=== PATIENT | male | born 1985 | race Native Hawaiian/Other Pacific Islander ===

== ENCOUNTER 2022-05-24 18:51 | Emergency (ER) | payer BC, SELFPAY ==
[2022-05-24 19:13] VITALS: BP 139/92; PULSE 85; RESP 18; TEMP 36.4; O2SAT 98; BMI 31.3
--- NOTE | 2022-05-24 19:38 | ED_ITS ---
HPI - Eye Problem General Chief complaint: Eye Problems Stated complaint: [facility] Time Seen by Provider: 05/24/22 19:32 History of Present Illness HPI Narrative: This 36-year-old male comes in with redness and discharge from both eyes over the past couple days. He states that he has had some matting and crusty discharge in his eyes. He does not report any other symptoms of infection. He does state that he has a tooth that needs a crown in its giving him some discomfort also. He does not report any ear pain or sore throat. He does not have cough or shortness of breath. He states that he does work in a [employer] environment. Related Data Previous Rx's Medication Instructions Recorded polymyxin B sulfate 10,000 1 drp OPHTHALMIC (EYE) Q3H 7 Days 05/24/22 unit-trimethoprim 1 mg/mL eye drops #10 ml Allergies Allergy/AdvReac Type Severity Reaction Status Date / Time No Known Drug Allergies Allergy Verified 05/24/22 19:15 Review of Systems Status of ROS: Reports: 10 or more systems reviewed and unremarkable except as noted in History and below Narrative: Constitutional: No fevers, no weight gain or loss. Eyes: Redness and purulent discharge bilaterally. HENT: No congestion, no sore throat, no ear pain. Cardiovascular: No chest pain, no palpitations. Respiratory: No shortness of breath, no wheezes, no cough. Gastrointestinal: No abdominal pain, no vomiting, no diarrhea. Genitourinary: No dysuria, no hematuria. Musculoskeletal: Normal range of motion. Skin: No rashes, no pruritis. Neurological: No dizziness, weakness, sensory change, speech change. Endo/Heme/Allergies: No bruising or bleeding. No polydipsia. Pysch: no suicidality, no anxiety, no insomnia. All other systems reviewed and are negative. [facility] Medical History (Updated 05/24/22 @ 19:43 by Mario Connell RN) No significant past medical history Surgical History (Updated 05/24/22 @ 19:43 by Mario Connell RN) No significant past surgical history Exam Narrative: Exam Narrative: Constitutional: Well-developed, well-nourished, no acute distress. HEENT: Normocephalic, atraumatic. Both eyes are injected with some increased tearing. There is currently no sign of purulence. Neck: Normal range of motion. Nontender. Supple. Heart: Intact distal pulses. Lungs: No chest discomfort. No wheezes, rhonchi, or rales. Abdomen: Nontender. Back: Normal range of motion. Extremities: Normal range of motion. No injury. Skin: Intact. No rash. Warm. No erythema or pallor. Neurologic: No altered sensation. No weakness. Alert and oriented. Psychiatric: No suicidality. No anxiety or depression. No insomnia. Nursing notes and vitals signs are reviewed. Const: Vital Signs, click to edit/add: Vital Signs - 24 hr 05/24/22 19:13 Temperature 97.6 F Pulse Rate [Right Pulse Oximeter] 85 Respiratory Rate 18 Blood Pressure [Ri ght Upper Arm] 139/92 H Pulse Oximetry 98 Course Vital Signs Vital signs: Initial Vital Signs Temperature 97.6 F 05/24/22 19:13 Temperature Source Temporal Artery Scan 05/24/22 19:13 Pulse Rate 85 05/24/22 19:13 Respiratory Rate 18 05/24/22 19:13 Blood Pressure 139/92 H 05/24/22 19:13 Blood Pressure Mean 107 05/24/22 19:13 Blood Pressure Position Standing 05/24/22 19:13 Pulse Oximetry 98 05/24/22 19:13 Oxygen Delivery Method 05/24/22 19:13 Vital Signs Temperature 97.6 F 05/24/22 19:13 Pulse Rate 85 05/24/22 19:13 Respiratory Rate 18 05/24/22 19:13 Blood Pressure 139/92 H 05/24/22 19:13 Pulse Oximetry 98 05/24/22 19:13 Temperature 97.6 F 05/24/22 19:13 Pulse Rate 85 05/24/22 19:13 Respiratory Rate 18 05/24/22 19:13 Blood Pressure 139/92 H 05/24/22 19:13 Pulse Oximetry 98 05/24/22 19:13 MDM - Eye Problem MDM Narrative Medical decision making narrative: This patient has symptoms typical of a conjunctivitis. A prescription for Polytrim is provided. He was also requesting a return to work note which was also provided. Discharge Plan Discharge Clinical Impression: Bacterial conjunctivitis Patient Disposition: Home, Self-Care Condition: Stable Instructions: Conjunctivitis (ED) Additional Instructions: Take medication as prescribed. Follow up with MD or return if worsening. Prescriptions: New polymyxin B sulf-trimethoprim 10,000 unit- 1 mg/mL drops 1 drp ophthalmic (eye) Q3H 7 Days Qty: 10 0RF Rx Instructions: while awake; do not exceed 6 doses in 24 hours Stand Alone Forms: [employer] Info Instructions
[2022-05-24 19:51] VITALS: BP 125/85; PULSE 84; RESP 18; TEMP 36.4; O2SAT 98
== END 2022-05-24 19:55 | disposition home or self-care (01) ==
LOC: ED 19:51
PROVIDERS: Emergency Provider Emergency Medicine Emergency Medical Services
DX: H10.023 Other mucopurulent conjunctivitis, bilateral (principal)
CPT/HCPCS: 99282; 99283; 99284

== ENCOUNTER 2022-07-26 13:28 | Emergency (ER) | payer BC, SELFPAY ==
[2022-07-26 14:07] VITALS: BP 152/106; PULSE 92; RESP 16; TEMP 36.7; O2SAT 98; BMI 33.9
--- NOTE | 2022-07-26 14:48 | ED_ITS ---
HPI - General Adult General Chief complaint: Cough Stated complaint: Cough Runny Nose Congested 2/2 Time Seen by Provider: 07/26/22 14:23 History of Present Illness HPI narrative: 37 year male coming in today requesting a work note to return to work. He took a few days off because he had a cough and congestion. His symptoms have now resolved. He states they took some at home COVID test that were negative. He has no concerns. Related Data Home Medications Medication Instructions Recorded Confirmed No Known Home Medications 07/26/22 07/26/22 Allergies Allergy/AdvReac Type Severity Reaction Status Date / Time No Known Drug Allergies Allergy Verified 05/24/22 19:15 Review of Systems Status of ROS: Reports: 6 or more systems reviewed and unremarkable except as noted in History and below [facility] Medical History (Updated 07/26/22 @ 14:51 by Idania Gillette MD) No significant past medical history Surgical History (Updated 05/24/22 @ 19:43 by Mario Connell RN) No significant past surgical history Social History Smoking Status: Current every day smoker What tobacco products do you use: cigarettes Second hand tobacco smoke exposure: Yes How often do you have a drink containing alcohol: monthly or less How often do you have six or more drinks on one occasion: Never AUDIT-C Alcohol total score: 1 Non-prescribed substance use: marijuana (any form) Exam Narrative: Exam Narrative: Well-nourished well-developed patient in no acute distress. Alert and oriented. Answers questions appropriately. Mood and affect are appropriate. Thoughts are goal oriented and rational. No tangential or magical thinking noted. Patient speaks in full sentences without needing to catch his breath. New does not appear ill or toxic. Voice sounds normal. HEENT: Normocephalic atraumatic. Pupils are equally round reactive to light. Extraocular muscles are intact. Conjunctivae are moist without any icterus noted. Moist mucous membranes. Cardiovascular: Heart is regular rate and rhythm S1 and S2 are present without any murmurs. Lungs: Clear to auscultation bilaterally no wheezes rhonchi or rales are appreciated. Patient takes deep breaths without any discomfort. Skin: Well perfused without any obvious rashes. Const: Vital Signs, click to edit/add: Vital Signs - 24 hr 07/26/22 14:07 Temperature 98.0 F Pulse Rate [Right Pulse Oximeter] 92 Respiratory Rate 16 Blood Pressure [Ri ght Upper Arm] 152/106 H Pulse Oximetry 98 Oxygen Delivery Me thod Room Air Course Vital Signs Vital signs: Initial Vital Signs Temperature 98.0 F 07/26/22 14:07 Temperature Source Temporal Artery Scan 07/26/22 14:07 Pulse Rate 92 07/26/22 14:07 Respiratory Rate 16 07/26/22 14:07 Blood Pressure 152/106 H 07/26/22 14:07 Blood Pressure Mean 121 07/26/22 14:07 Blood Pressure Position Sitting 07/26/22 14:07 Pulse Oximetry 98 07/26/22 14:07 Oxygen Delivery Method 07/26/22 14:07 Vital Signs Temperature 98.0 F 07/26/22 14:07 Pulse Rate 92 07/26/22 14:07 Respiratory Rate 16 07/26/22 14:07 Blood Pressure 152/106 H 07/26/22 14:07 Pulse Oximetry 98 07/26/22 14:07 Oxygen Delivery Method 07/26/22 14:07 Temperature 98.0 F 07/26/22 14:07 Pulse Rate 92 07/26/22 14:07 Respiratory Rate 16 07/26/22 14:07 Blood Pressure 152/106 H 07/26/22 14:07 Pulse Oximetry 98 07/26/22 14:07 Oxygen Delivery Method 07/26/22 14:07 Medical Decision Making MDM Narrative Medical decision making narrative: Healthy 37-year-old male requesting work note. Note was provided. Discharge Plan Discharge Clinical Impression: Healthy adult male Patient Disposition: Home, Self-Care Condition: Stable Prescriptions: No Action No Known Home Medications Follow Up/Referrals: Provider,Not a Local [Primary Care Provider] - Stand Alone Forms: [facility] Info Instructions
--- OUTSIDE RECORDS SUMMARY | 2022-07-26 14:58 | XMS_ITS | Encounter Summary ---
:1985 Author Organization [facility] Address [address] [address] Care Team Providers Name Role Phone Needs Pcp, Assignment Primary Care Provider Encounter Details Date Type Department Care Team Description 03/09/2016 Notes/Orders CODING DEPT ONLY 5050 Needs Pcp, Assignment [facility] ESTELLA YANEZ [facility] [address] N [id number] Social History Tobacco Use Types Packs/Day Years Used Date Smoking Tobacco: Never Assessed Sex Assigned at Date Recorded Not on file documented as of this encounter Plan of Treatment Not on filedocumented as of this encounter Visit Diagnoses Not on filedocumented in this encounter Care Teams In Process Inspector Relationship Specialty Start Date End Date Needs Pcp, Assignment PCP - General 03/04/15 [place] [address] documented as of this encounter
--- OUTSIDE RECORDS SUMMARY | 2022-07-26 14:58 | XMS_ITS | Encounter Summary ---
:1985 Author Organization [employer] [facility] Address [address] [address] Care Team Providers Name Role Phone Needs Pcp, Assignment Primary Care Provider Reason for Visit Reason Comments Rash Encounter Details Date Type Department Care Team Description 12/14/2020 Hospital Encounter [facility] Alfonso Rash and nonspecific Arnulfo Nolan MD skin eruption Care [address] [place] [address] [place] [id number] [phone] Social History Tobacco Use Types Packs/Day Years Used Date Smoking Tobacco: Every Day Cigarettes 0.5 17 Smokeless Tobacco: Never Sex Assigned at Date Recorded Not on file documented as of this encounter Last Filed Vital Signs Vital Sign Reading Time Taken Comments Blood Pressure 164/108 12/14/2020 12:07 PM EXECUTIVE CHEF ASSISTANT Pulse 90 12/14/2020 12:07 PM EXECUTIVE CHEF ASSISTANT Temperature 36.9 ??C (98.5 ??F) 12/14/2020 12:07 PM EXECUTIVE CHEF ASSISTANT Respiratory Rate 16 12/14/2020 12:07 PM EXECUTIVE CHEF ASSISTANT Oxygen Saturation 100% 12/14/2020 12:07 PM EXECUTIVE CHEF ASSISTANT Inhaled Oxygen Concentration - - Weight - - Height - - Body Mass Index - - documented in this encounter ED Notes Cody Orozco MD - 12/14/2020 12:57 PM CST Itchy red ring on left buttock x 3 months. Appears to be getting bigger. Denies fever. Patient ID: Raymundo Viera Date of : 1985 SUBJECTIVE: 35 y.o. male presents with a rash on his left buttock that is been going on for about three months. He says it seems to be getting bigger and it is itchy on the edges. He has not been around anybody with the rash. No other complaints. Medications: Allergies: No Known Allergies Review of systems: As noted in HPI. All other systems are negative. OBJECTIVE: General: Appears well in no distress. Vitals: Blood pressure (!) 164/108, pulse 90, temperature 36.9 ??C (98.5 ??F), temperature source Oral, resp. rate 16, SpO2 100 %. HEENT: Head is normocephalic and atraumatic, EOM's intact. Oropharynx normal. External auditory canals are without drainage. NECK: Full range of motion is noted. MUSCULOSKELETAL: Normal appearance range of motion appeared normal. Patient ambulated without difficulties. NEURO: Cranial nerves 2-12 appear grossly intact, there are no focal deficits present. SKIN: He has a circular rash on his left buttock about 8 cm in diameter on the top of the rash the edges slightly raised. UC Course: This does have some characteristics of a tinea type rash, started on ketoconazole cream to apply b.i.d. and to keep applying it until two weeks after the rash is gone. He does have a number to follow up with primary care physician and they can recheck his blood pressure then to see if it is continues to be elevated. ASSESSMENT: The encounter diagnosis was Rash and nonspecific skin eruption. PLAN: Ketoconazole as directed. Follow up with primary care physician in 3 - 5 days or sooner if symptoms worsen. May return here orgo to the ER if worsening or concerns. Call here if any concerns whatsoever. UTIVE CHEF ASSISTANT documented in this encounter Plan of Treatment Not on filedocumented as of this encounter Visit Diagnoses Diagnosis Rash and nonspecific skin eruption Rash and other nonspecific skin eruption Triage Assessment Note - Siobhan Etienne RN - 12/14/2020 12:06 PM EXECUTIVE CHEF ASSISTANT Itchy red ring on left buttock x 3 months. Appears to be getting bigger. Denies fever. UTIVE CHEF ASSISTANT documented in this encounter Care Teams Freight Brakeman Relationship Specialty Start Date End Date Needs Pcp, Assignment PCP - General 03/04/15 [place] [address] documented as of this encounter
--- OUTSIDE RECORDS SUMMARY | 2022-07-26 14:58 | XMS_ITS | Encounter Summary ---
:1985 Author Organization [facility] Address [address], [place] [address] Care Team Providers Name Role Phone Needs Pcp, Assignment Primary Care Provider Reason for Visit Reason Comments Abdominal Pain Diarrhea Encounter Details Date Type Department Care Team Description 03/04/2015 Hospital Encounter [facility] Joann Reyes, Jennifer rehman; Care MATTHEW Acute abdominal pain [address] [address] [phone] Social History Tobacco Use Types Packs/Day Years Used Date Smoking Tobacco: Never Assessed Sex Assigned at Date Recorded Not on file documented as of this encounter Last Filed Vital Signs Vital Sign Reading Time Taken Comments Blood Pressure 129/87 03/04/2015 2:05 PM CDT Pulse 54 03/04/2015 2:05 PM CDT Temperature 35.9 ??C (96.6 ??F) 03/04/2015 2:05 PM CDT Respiratory Rate 20 03/04/2015 2:05 PM CDT Oxygen Saturation - - Inhaled Oxygen Concentration - - Weight - - Height - - Body Mass Index - - documented in this encounter ED Notes Joann Reyes PA-C - 03/04/2015 2:25 PM CDT Acute Clinic Visit SUBJECTIVE: History of Present Illness: Raymundo Viera is a 29 y.o. male who presents with girlfriend concern for vomiting and diarrhea. This started 1 week ago. He did have vomiting for the first 3-4 days, but that has since resolved. He continues to have nausea. He reports continued diarrhea. States he has had watery stool approximately 10-15x/ day. States he has had upper abdominal discomfort which will be intermittent. Pain is rated 3-4/10. Denies urinary symptoms. No recent sick contacts. No recent antibiotics.States he ate at [employer] and the next day started to feel off. States the food did not taste right. No recent travel outside of the [place] No blood in the vomitus or diarrhea. He did feel lightheaded yesterday, but not today.No treatments have been tried. He does consume alcohol occasionally. States he has had a few beers a few days ago but nothing since. States he believes he is not improving as fast as he works 2 jobs and has not had time to rest. He is wondering if he could have a fewdays off to rest. Past History: History reviewed. No pertinent past medical history. Adverse Drug Reactions: No Known Allergies Chronic Medications: Reviewed and updated today on the Patient Health Profile in EMR Review of Systems: No History of chronic GI disease. No rash. Denies sore throat. Complete review systems is negative. Social history: History Social History ??? Marital Status: Single Spouse Name: N/A Number of Children: N/A ??? Years of Education: N/A Social History Main Topics ??? Smoking status: None ??? Smokeless tobacco: None ??? Alcohol Use: None ??? Drug Use: None ??? Sexual Activity: None Other Topics Concern ??? None Social History Narrative ??? None OBJECTIVE: Filed Vitals: 03/04/15 1405 BP: 129/87 Pulse: 54 Temp: 35.9 ??C (96.7 ??F) TempSrc: Oral Resp: 20 General Appearance: Mildly ill-appearing. Nontoxic appearing breathing easily. Eyes: Full EOM, PERRLA, without lesions or injection. Oropharynx: Normal, mucous membranes minimally dry. tonsils symmetric without redness or exudate. Nooral or posterior pharyngeal lesions. Respiratory: Lung sounds clear to auscultation without respiratory distress. Heart: RR without murmurs, rubs, or gallops. Abdomen: Bowel sounds hyperactive without pathological sounds. No abdominal tenderness, guarding or rebound. He points the epigastric/upper, region where he said discomfort however I'm not able to reproduce this on exam today and he states he does not recurrent abdominal pain. No masses or hernias noted. No hepatosplenomegaly. No CVA TTP. Lab & X-Ray: We discussed about starting IV, checking RST, CBC, amylase, lipase, liver function,urine, and stool cultures to rule out causes for his persistent diarrhea and abdominal pain. He states he does not have current insurance and is concerned about the cost. He does not want to do any testing today but is requesting to have a few days off so he can rest and see if his symptoms will improve. he states that his symptoms have not improved in the next 2 days after rest, he would return and to have labs at that time but declined having any further testing today. ASSESSMENT : 1. Acute viral gastroenteritis with persistent diarrhea PLAN: Recommendations for home treatment: recommend further evaluation and testing today however he states he is concerned about the cost as he does not have insurance. He therefore declined any further testing/evaluation today. He wishes to just rest at home. We discussed that this could be a viral gastroenteritis however I'm concerned about the persistent diarrhea. I did order stool cultures, Giardia, O&P, and C. difficile testing. Ifdiarrhea is not improving in the next day to 2, he will submit these cultures. I discussed that if his symptoms are not improving in the next 2 days, would recommend reevaluation at that time and for further testing. He states he would do that if it is not improving at that point or if it is worseningbefore then but declines any further testing/treatments here in clinic today. Encourage nutritious fluids. Discussed but the importance of avoiding dehydration. Work note was given excusing him from work through 03/06/15. Contagiousness discussed. RTC PRN for persistent vomiting, diarrhea which is not improving or otherwise worsening condition.Patient is agreeable to this plan. he is in stable condition. Please note that the above medical documentation was created with voice recognition software and may contain typographic errors. documented in this encounter Miscellaneous Notes Letter - Joann Reyes PA-C - 03/04/2015 12:00 AM CDT [facility] [address] [place] [address] March 04, 2015 Patient: Raymundo Viera Date of : 1985 Date of Visit: 03/04/2015 To Whom It May Concern: Raymundo Viera was seen and treated in our department on 03/04/2015. Please excuse him from work from 03/04/15-03/06/15 due to current illness. If you have any questions or concerns, please don't hesitate to call. Sincerely, Joann Reyes PA-C DATA ANALYST documented in this encounter Plan of Treatment Not on filedocumented as of this encounter Visit Diagnoses Diagnosis Diarrhea Acute abdominal pain Abdominal pain, unspecified site Triage Assessment Note - Beatriz Galvan LPN - 03/04/2015 2:04 PM CDT Pt. here for abdominal pain and diarrhea x 1 week. Did have vomiting also, but now mainly diarrhea and nausea. documented in this encounter Care Teams Forest Fire Officer Relationship Specialty Start Date End Date Needs Pcp, Assignment PCP - General 03/04/15 [place] [address] documented as of this encounter
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
--- OUTSIDE RECORDS SUMMARY | 2022-07-26 14:58 | XMS_ITS | Encounter Summary ---
:1985 Author Organization [facility] Address [address], [place] [address] Care Team Providers Name Role Phone Needs Pcp, Assignment Primary Care Provider Reason for Referral Procedure/Equipment (Routine) - Incomplete Specialty Diagnoses / Procedures Referred By Contact Refer red To Contact Diagnoses Left lower quadrant pain Bryan Cuellar MD Procedures CT Abd Pelvis W IV Cont [address] [place], [place] [address] Referral ID Status Reason Start Date Expiration Date Visits V isits Requested Authorized [id number] Incomplete 10/08/2018 01/07/2020 1 1 [employer] Reason for Visit Reason Comments Abdominal Pain Encounter Details Date Type Department Care Team Description 10/08/2018 Hospital Encounter [facility] Bryan Cuellar ft lower quadrant pain; Susan Jang MD Diverticulitis [address] [place] [address] [place], [place] [id number] [address] [phone] Social History Tobacco Use Types Packs/Day Years Used Date Smoking Tobacco: Every Day Cigarettes 0.5 17 Smokeless Tobacco: Never Tobacco Cessation: Counseling Given: Yes Sex Assigned at Date Recorded Not on file documented as of this encounter Last Filed Vital Signs Vital Sign Reading Time Taken Comments Blood Pressure 137/87 10/08/2018 4:29 PM [employer]AL [employer] Pulse 70 10/08/2018 4:29 PM [employer]ENTAL [employer] TE[employer] Temperature 36.8 ??C (98.3 ??F) 10/08/2018 4:29 PM [employer]ENTAL [employer]ER Respiratory Rate 18 10/08/2018 4:29 PM [employer]ENTAL [employer]UREMENTS TE[employer]ER Oxygen Saturation 98% 10/08/2018 4:29 PM [employer]ENTAL [employer]URE[employer] TE[employer]ER Inhaled Oxygen Concentration - - Weight - - Height - - Body Mass Index - - documented in this encounter Discharge Instructions Discharge InstructionsBryan Cuellar MD - 10/08/2018 6:42 PM CST Images from the original note were not included. Abdominal Pain: Care Instructions Your Care Instructions Abdominal pain has many possible causes. Some aren't serious and get better on their own in a few days. Others need more testing and treatment. If your pain continues or gets worse, you need to be rechecked and may need more tests to find out what is wrong. You may need surgery to correct the problem. Don't ignore new symptoms, such as fever, nausea and vomiting, urination problems, pain that gets worse, and dizziness. These may be signs of a more serious problem. Your doctor may have recommended a follow-up visit in the next 8 to 12 hours. If you are not gettingbetter, you may need more tests or treatment. The doctor has checked you carefully, but problems can develop later. If you notice any problems or new symptoms, get medical treatment right away. Follow-up care is a bernardo part of your treatment and safety. Be sure to make and go to all appointments, and call your doctor if you are having problems. It's also a good idea to know your test results and keep a list of the medicines you take. How can you care for yourself at home? ?? Rest until you feel better. ?? To prevent dehydration, drink plenty of fluids, enough so that your urine is light yellow or clear like water. Choose water and other caffeine-free clear liquids until you feel better. If you have kidney, heart, or liver disease and have to limit fluids, talk with your doctor before you increase the amount of fluids you drink. ?? If your stomach is upset, eat mild foods, such as rice, dry toast or crackers, bananas, and applesauce. Try eating several small meals instead of two or three large ones. ?? Wait until 48 hours after all symptoms have gone away before you have spicy foods, alcohol, and drinks that contain caffeine. ?? Do not eat foods that are high in fat. ?? Avoid anti-inflammatory medicines such as aspirin, ibuprofen (Advil, Motrin), and naproxen (Aleve). These can cause stomach upset. Talk to your doctor if you take daily aspirin for another health problem. When should you call for help? Call 911 anytime you think you may need emergency care. For example, call if: ? You passed out (lost consciousness). ? You pass maroon or very bloody stools. ? You vomit blood or what looks like coffee grounds. ? You have new, severe belly pain. ??Call your doctor now or seek immediate medical care if: ? Your pain gets worse, especially if it becomes focused in one area of your belly. ? You have a new or higher fever. ? Your stools are black and look like tar, or they have streaks of blood. ? You have unexpected vaginal bleeding. ? You have symptoms of a urinary tract infection. These may include: ? Pain when you urinate. ? Urinating more often than usual. ? Blood in your urine. ? You are dizzy or lightheaded, or you feel like you may faint. ??Watch closely for changes in your health, and be sure to contact your doctor if: ? You are not getting better after 1 day (24 hours). Where can you learn more? 1. Go to [employer] or [employer]. 2. Enter E907 in the search box. Current as of: September 24, 2017 Content Version: 11.8 ?? 7734-4180 [employer]. Diverticulitis: Care Instructions Your Care Instructions Diverticulitis occurs when pouches form in the wall of the colon and become inflamed or infected. Itcan be very painful. Doctors aren't sure what causes diverticulitis. There is no proof that foods such as nuts, seeds, orberries cause it or make it worse. A low-fiber diet may cause the colon to work harder to push stoolforward. Pouches may form because of this extra work. It may be hard to think about healthy eating while you're in pain. But as you recover, you might think about how you can use healthy eating for overall better health. Healthy eating may help you avoid future attacks. Follow-up care is a bernardo part of your treatment and safety. Be sure to make and go to all appointments, and call your doctor if you are having problems. It's also a good idea to know your test results and keep a list of the medicines you take. How can you care for yourself at home? ?? Drink plenty of fluids, enough so that your urine is light yellow or clear like water. If you have kidney, heart, or liver disease and have to limit fluids, talk with your doctor before you increasethe amount of fluids you drink. ?? Stick to liquids or a bland diet (plain rice, bananas, dry toast or crackers, applesauce) until you are feeling better. Then you can return to regular foods and gradually increase the amount of fiber in your diet. ?? Use a heating pad set on low on your belly to relieve mild cramps and pain. ?? Get extra rest until you are feeling better. ?? Be safe with medicines. Read and follow all instructions on the label. ? If the doctor gave you a prescription medicine for pain, take it as prescribed. ? If you are not taking a prescription pain medicine, ask your doctor if you can take an iqjn-dgr-tdyexdx medicine. ?? If your doctor prescribed antibiotics, take them as directed. Do not stop taking them just because you feel better. You need to take the full course of antibiotics. To prevent future attacks of diverticulitis ?? Avoid constipation: ? Include fruits, vegetables, beans, and whole grains in your diet each day. These foods are high infiber. ? Drink plenty of fluids, enough so that your urine is light yellow or clear like water. If you havekidney, heart, or liver disease and have to limit fluids, talk with your doctor before you increase the amount of fluids you drink. ? Get some exercise every day. Build up slowly to 30 to 60 minutes a day on 5 or more days of the week. ? Take a fiber supplement, such as Citrucel or Metamucil, every day if needed. Read and follow all instructions on the label. ? Schedule time each day for a bowel movement. Having a daily routine may help. Take your time and do not strain when having a bowel movement. When should you call for help? Call your doctor now or seek immediate medical care if: ? You have a fever. ? You are vomiting. ? You have new or worse belly pain. ? You cannot pass stools or gas. ??Watch closely for changes in your health, and be sure to contact your doctor if you have any problems. Where can you learn more? 1. Go to [employer] or [employer]. 2. Enter H901 in the search box. Current as of: January 30, 2018 Content Version: 11.8 ?? 0324-0131 [employer]. Diverticulitis: Care Instructions Your Care Instructions Diverticulitis occurs when pouches form in the wall of the colon and become inflamed or infected. Itcan be very painful. Doctors aren't sure what causes diverticulitis. There is no proof that foods such as nuts, seeds, orberries cause it or make it worse. A low-fiber diet may cause the colon to work harder to push stoolforward. Pouches may form because of this extra work. It may be hard to think about healthy eating while you're in pain. But as you recover, you might think about how you can use healthy eating for overall better health. Healthy eating may help you avoid future attacks. Follow-up care is a bernardo part of your treatment and safety. Be sure to make and go to all appointments, and call your doctor if you are having problems. It's also a good idea to know your test results and keep a list of the medicines you take. How can you care for yourself at home? ?? Drink plenty of fluids, enough so that your urine is light yellow or clear like water. If you have kidney, heart, or liver disease and have to limit fluids, talk with your doctor before you increasethe amount of fluids you drink. ?? Stick to liquids or a bland diet (plain rice, bananas, dry toast or crackers, applesauce) until you are feeling better. Then you can return to regular foods and gradually increase the amount of fiber in your diet. ?? Use a heating pad set on low on your belly to relieve mild cramps and pain. ?? Get extra rest until you are feeling better. ?? Be safe with medicines. Read and follow all instructions on the label. ? If the doctor gave you a prescription medicine for pain, take it as prescribed. ? If you are not taking a prescription pain medicine, ask your doctor if you can take an sack-kds-smrqyxg medicine. ?? If your doctor prescribed antibiotics, take them as directed. Do not stop taking them just because you feel better. You need to take the full course of antibiotics. To prevent future attacks of diverticulitis ?? Avoid constipation: ? Include fruits, vegetables, beans, and whole grains in your diet each day. These foods are high infiber. ? Drink plenty of fluids, enough so that your urine is light yellow or clear like water. If you havekidney, heart, or liver disease and have to limit fluids, talk with your doctor before you increase the amount of fluids you drink. ? Get some exercise every day. Build up slowly to 30 to 60 minutes a day on 5 or more days of the week. ? Take a fiber supplement, such as Citrucel or Metamucil, every day if needed. Read and follow all instructions on the label. ? Schedule time each day for a bowel movement. Having a daily routine may help. Take your time and do not strain when having a bowel movement. When should you call for help? Call your doctor now or seek immediate medical care if: ? You have a fever. ? You are vomiting. ? You have new or worse belly pain. ? You cannot pass stools or gas. ??Watch closely for changes in your health, and be sure to contact your doctor if you have any problems. Where can you learn more? 1. Go to [employer] or [employer]. 2. Enter H901 in the search box. Current as of: January 30, 2018 Content Version: 11.8 ?? 7027-3032 [employer]. Abdominal Pain: Care Instructions Your Care Instructions Abdominal pain has many possible causes. Some aren't serious and get better on their own in a few days. Others need more testing and treatment. If your pain continues or gets worse, you need to be rechecked and may need more tests to find out what is wrong. You may need surgery to correct the problem. Don't ignore new symptoms, such as fever, nausea and vomiting, urination problems, pain that gets worse, and dizziness. These may be signs of a more serious problem. Your doctor may have recommended a follow-up visit in the next 8 to 12 hours. If you are not gettingbetter, you may need more tests or treatment. The doctor has checked you carefully, but problems can develop later. If you notice any problems or new symptoms, get medical treatment right away. Follow-up care is a bernardo part of your treatment and safety. Be sure to make and go to all appointments, and call your doctor if you are having problems. It's also a good idea to know your test results and keep a list of the medicines you take. How can you care for yourself at home? ?? Rest until you feel better. ?? To prevent dehydration, drink plenty of fluids, enough so that your urine is light yellow or clear like water. Choose water and other caffeine-free clear liquids until you feel better. If you have kidney, heart, or liver disease and have to limit fluids, talk with your doctor before you increase the amount of fluids you drink. ?? If your stomach is upset, eat mild foods, such as rice, dry toast or crackers, bananas, and applesauce. Try eating several small meals instead of two or three large ones. ?? Wait until 48 hours after all symptoms have gone away before you have spicy foods, alcohol, and drinks that contain caffeine. ?? Do not eat foods that are high in fat. ?? Avoid anti-inflammatory medicines such as aspirin, ibuprofen (Advil, Motrin), and naproxen (Aleve). These can cause stomach upset. Talk to your doctor if you take daily aspirin for another health problem. When should you call for help? Call 911 anytime you think you may need emergency care. For example, call if: ? You passed out (lost consciousness). ? You pass maroon or very bloody stools. ? You vomit blood or what looks like coffee grounds. ? You have new, severe belly pain. ??Call your doctor now or seek immediate medical care if: ? Your pain gets worse, especially if it becomes focused in one area of your belly. ? You have a new or higher fever. ? Your stools are black and look like tar, or they have streaks of blood. ? You have unexpected vaginal bleeding. ? You have symptoms of a urinary tract infection. These may include: ? Pain when you urinate. ? Urinating more often than usual. ? Blood in your urine. ? You are dizzy or lightheaded, or you feel like you may faint. ??Watch closely for changes in your health, and be sure to contact your doctor if: ? You are not getting better after 1 day (24 hours). Where can you learn more? 1. Go to [employer] or [employer]. 2. Enter E907 in the search box. Current as of: September 24, 2017 Content Version: 11.8 ?? 0610-0888 [employer]. Abdominal Pain: Care Instructions Your Care Instructions Abdominal pain has many possible causes. Some aren't serious and get better on their own in a few days. Others need more testing and treatment. If your pain continues or gets worse, you need to be rechecked and may need more tests to find out what is wrong. You may need surgery to correct the problem. Don't ignore new symptoms, such as fever, nausea and vomiting, urination problems, pain that gets worse, and dizziness. These may be signs of a more serious problem. Your doctor may have recommended a follow-up visit in the next 8 to 12 hours. If you are not gettingbetter, you may need more tests or treatment. The doctor has checked you carefully, but problems can develop later. If you notice any problems or new symptoms, get medical treatment right away. Follow-up care is a bernardo part of your treatment and safety. Be sure to make and go to all appointments, and call your doctor if you are having problems. It's also a good idea to know your test results and keep a list of the medicines you take. How can you care for yourself at home? ?? Rest until you feel better. ?? To prevent dehydration, drink plenty of fluids, enough so that your urine is light yellow or clear like water. Choose water and other caffeine-free clear liquids until you feel better. If you have kidney, heart, or liver disease and have to limit fluids, talk with your doctor before you increase the amount of fluids you drink. ?? If your stomach is upset, eat mild foods, such as rice, dry toast or crackers, bananas, and applesauce. Try eating several small meals instead of two or three large ones. ?? Wait until 48 hours after all symptoms have gone away before you have spicy foods, alcohol, and drinks that contain caffeine. ?? Do not eat foods that are high in fat. ?? Avoid anti-inflammatory medicines such as aspirin, ibuprofen (Advil, Motrin), and naproxen (Aleve). These can cause stomach upset. Talk to your doctor if you take daily aspirin for another health problem. When should you call for help? Call 911 anytime you think you may need emergency care. For example, call if: ? You passed out (lost consciousness). ? You pass maroon or very bloody stools. ? You vomit blood or what looks like coffee grounds. ? You have new, severe belly pain. ??Call your doctor now or seek immediate medical care if: ? Your pain gets worse, especially if it becomes focused in one area of your belly. ? You have a new or higher fever. ? Your stools are black and look like tar, or they have streaks of blood. ? You have unexpected vaginal bleeding. ? You have symptoms of a urinary tract infection. These may include: ? Pain when you urinate. ? Urinating more often than usual. ? Blood in your urine. ? You are dizzy or lightheaded, or you feel like you may faint. ??Watch closely for changes in your health, and be sure to contact your doctor if: ? You are not getting better after 1 day (24 hours). Where can you learn more? 1. Go to [employer] or [employer]. 2. Enter E907 in the search box. Current as of: September 24, 2017 Content Version: 11.8 ?? 4437-0842 [employer]. Diverticulitis: Care Instructions Your Care Instructions Diverticulitis occurs when pouches form in the wall of the colon and become inflamed or infected. Itcan be very painful. Doctors aren't sure what causes diverticulitis. There is no proof that foods such as nuts, seeds, orberries cause it or make it worse. A low-fiber diet may cause the colon to work harder to push stoolforward. Pouches may form because of this extra work. It may be hard to think about healthy eating while you're in pain. But as you recover, you might think about how you can use healthy eating for overall better health. Healthy eating may help you avoid future attacks. Follow-up care is a bernardo part of your treatment and safety. Be sure to make and go to all appointments, and call your doctor if you are having problems. It's also a good idea to know your test results and keep a list of the medicines you take. How can you care for yourself at home? ?? Drink plenty of fluids, enough so that your urine is light yellow or clear like water. If you have kidney, heart, or liver disease and have to limit fluids, talk with your doctor before you increasethe amount of fluids you drink. ?? Stick to liquids or a bland diet (plain rice, bananas, dry toast or crackers, applesauce) until you are feeling better. Then you can return to regular foods and gradually increase the amount of fiber in your diet. ?? Use a heating pad set on low on your belly to relieve mild cramps and pain. ?? Get extra rest until you are feeling better. ?? Be safe with medicines. Read and follow all instructions on the label. ? If the doctor gave you a prescription medicine for pain, take it as prescribed. ? If you are not taking a prescription pain medicine, ask your doctor if you can take an orar-bsx-lvefsko medicine. ?? If your doctor prescribed antibiotics, take them as directed. Do not stop taking them just because you feel better. You need to take the full course of antibiotics. To prevent future attacks of diverticulitis ?? Avoid constipation: ? Include fruits, vegetables, beans, and whole grains in your diet each day. These foods are high infiber. ? Drink plenty of fluids, enough so that your urine is light yellow or clear like water. If you havekidney, heart, or liver disease and have to limit fluids, talk with your doctor before you increase the amount of fluids you drink. ? Get some exercise every day. Build up slowly to 30 to 60 minutes a day on 5 or more days of the week. ? Take a fiber supplement, such as Citrucel or Metamucil, every day if needed. Read and follow all instructions on the label. ? Schedule time each day for a bowel movement. Having a daily routine may help. Take your time and do not strain when having a bowel movement. When should you call for help? Call your doctor now or seek immediate medical care if: ? You have a fever. ? You are vomiting. ? You have new or worse belly pain. ? You cannot pass stools or gas. ??Watch closely for changes in your health, and be sure to contact your doctor if you have any problems. Where can you learn more? 1. Go to [employer] or [employer]. 2. Enter H901 in the search box. Current as of: January 30, 2018 Content Version: 11.8 ?? 7242-3239 [employer]. Diverticulitis: Care Instructions Your Care Instructions Diverticulitis occurs when pouches form in the wall of the colon and become inflamed or infected. Itcan be very painful. Doctors aren't sure what causes diverticulitis. There is no proof that foods such as nuts, seeds, orberries cause it or make it worse. A low-fiber diet may cause the colon to work harder to push stoolforward. Pouches may form because of this extra work. It may be hard to think about healthy eating while you're in pain. But as you recover, you might think about how you can use healthy eating for overall better health. Healthy eating may help you avoid future attacks. Follow-up care is a bernardo part of your treatment and safety. Be sure to make and go to all appointments, and call your doctor if you are having problems. It's also a good idea to know your test results and keep a list of the medicines you take. How can you care for yourself at home? ?? Drink plenty of fluids, enough so that your urine is light yellow or clear like water. If you have kidney, heart, or liver disease and have to limit fluids, talk with your doctor before you increasethe amount of fluids you drink. ?? Stick to liquids or a bland diet (plain rice, bananas, dry toast or crackers, applesauce) until you are feeling better. Then you can return to regular foods and gradually increase the amount of fiber in your diet. ?? Use a heating pad set on low on your belly to relieve mild cramps and pain. ?? Get extra rest until you are feeling better. ?? Be safe with medicines. Read and follow all instructions on the label. ? If the doctor gave you a prescription medicine for pain, take it as prescribed. ? If you are not taking a prescription pain medicine, ask your doctor if you can take an pvzc-ylx-gdlarsi medicine. ?? If your doctor prescribed antibiotics, take them as directed. Do not stop taking them just because you feel better. You need to take the full course of antibiotics. To prevent future attacks of diverticulitis ?? Avoid constipation: ? Include fruits, vegetables, beans, and whole grains in your diet each day. These foods are high infiber. ? Drink plenty of fluids, enough so that your urine is light yellow or clear like water. If you havekidney, heart, or liver disease and have to limit fluids, talk with your doctor before you increase the amount of fluids you drink. ? Get some exercise every day. Build up slowly to 30 to 60 minutes a day on 5 or more days of the week. ? Take a fiber supplement, such as Citrucel or Metamucil, every day if needed. Read and follow all instructions on the label. ? Schedule time each day for a bowel movement. Having a daily routine may help. Take your time and do not strain when having a bowel movement. When should you call for help? Call your doctor now or seek immediate medical care if: ? You have a fever. ? You are vomiting. ? You have new or worse belly pain. ? You cannot pass stools or gas. ??Watch closely for changes in your health, and be sure to contact your doctor if you have any problems. Where can you learn more? 1. Go to [employer] or [employer]. 2. Enter H901 in the search box. Current as of: January 30, 2018 Content Version: 11.8 ?? 2434-3440 [employer]. 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 metroNIDAZOLE (FLAGYL) 500 Take 1 Tablet by 20 Tablet 0 02/201810/18/2018 MG tablet mouth two times a day for 10 days. documented as of this encounter ED Notes Bryan Cuellar MD - 10/08/2018 12:00 PM CST NAME: NEERAJ MOLINA MR#: [id number] CSN: [id number] AUTHENTICATING CLINICIAN: Bryan Cuellar MD CONFIRM #: [id number] LOC: 520 URGENT CARE PROGRESS NOTE DATE OF VISIT: 10/08/2018 : 1985 CHIEF COMPLAINT: Abdominal pain. HISTORY OF PRESENTING ILLNESS: A 33-year-old male was evaluated in urgent care yesterday for a similar abdominal pain. At that time, he was seen to have minimally elevated white count. He refused imaging and further workup. He was instructed to return to Urgent Care today for re-evaluation. He returns with persistent intermittent ab dominal pain localized in the left lower quadrant. He has no associated urinary symptoms such as hematuria, hesitancy, urgency, and has no blood in the stool. No mucus in the stool. He is not constipated and has no diarrhea. He also notes increasing intra-abdominal pressure with straining at stool or with urination exacerbates the pain in the left lower abdominal quadrant. He has no associated nauseaor vomiting. The patient has not had similar problems like this before. PAST MEDICAL HISTORY, REVIEW OF SYSTEMS, IMMUNIZATIONS, SOCIAL AND FAMILY HISTORY: Reviewed in [employer]. CURRENT MEDICATIONS: Reviewed in [employer]. DOCUMENTED DRUG ALLERGIES: Reviewed in [facility]. EXAM: GENERAL: Alert, interactive, pleasant 33-year-old male. VITAL SIGNS: Blood pressure 137/87, respirations 18 and unlabored, heart rate 70 and regular, temperature 36.8 Celsius, oxygen saturation on room air 98%. ABDOMEN: Full. Bowel sounds active. Negative Rovsing's sign. Negative Lancaster's. Negative McBurney's.Negative Hanna's sign. No costovertebral angle tenderness or suprapubic tenderness, but marked tenderness to the left lower quadrant with negative rebound. RECTAL: Exam deferred. CHEST: Symmetric. Lung johnson are clear to auscultation and resonant to percussion. CARDIOVASCULAR: No heaves or thrills. Regular rate and rhythm. Peripheral pulses equal. Cap refill intact. DERMATOLOGIC: Normal texture and turgor. Mucous membranes moist. No icterus. No lesions. SPECIAL TESTS IN URGENT CARE: CBC, basic metabolic panel, lipase. See appended in Epic. Footnote: Peripheral WBC increased from 11.6 yesterday to 11.8 today with absolute neutrophil count decreasing from 9.1 to 8.9. Lipase is 12. Imaging study with oral and IV contrast. Formal report attached in Epic. Consistent with uncomplicated diverticulitis without bowel obstruction. CLINICAL IMPRESSION: Sigmoid colon diverticulitis without abscess formation. DISPOSITION: 1.The patient is discharged from urgent care with laboratory results and imaging study results. 2.He is instructed to commence Cipro and Flagyl as directed x10 days. 3.Follow up with Urgent Care if symptoms should persist or at any time worsen. 4.Needs followup with Primary Care at the conclusion of his antibiotics for reassessment and possible consideration for a colonoscopy. 5.The patient understands these directives. All questions answered to his satisfaction. 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 COMPLETE BLOOD STAT 10/08/2018 5:02 PM Left lower quadrant Results for this COUNT-W/DIFF MENTAL MEASUREMENTS TEACHER pain procedure are i n the results section. BASIC METABOLIC PANEL STAT 10/08/2018 5:02 PM Left lower qu adrant Results for this MENTAL MEASUREMENTS TEACHER pain procedure are i n the results section. DIFFERENTIAL STAT 10/08/2018 5:02 PM Results f or this MENTAL MEASUREMENTS TEACHER procedure are i n the results section. LIPASE STAT 10/08/2018 5:02 PM Left lower quadrant Re sults for this MENTAL MEASUREMENTS TEACHER pain procedure are i n the results section. C-REACTIVE PROTEIN STAT 10/08/2018 5:02 PM Left lower quadr ant Results for this MENTAL MEASUREMENTS TEACHER pain procedure are i n the results section. documented in this encounter Results CT Abd Pelvis W IV Cont (10/08/2018 6:12 PM MENTAL MEASUREMENTS TEACHER) Anatomical Region Laterality Modality Abdomen, Pelvis Computed Tomography Specimen (Source) Anatomical Collection Method Collection Time Re ceived Time Location / / Volume Laterality 10/08/2018 5:56 PM MENTAL MEASUREMENTS TEACHER Impressions 10/08/2018 6:29 PM MENTAL MEASUREMENTS TEACHER IMPRESSION: ?? 1. Findings consistent with diverticulit is of the sigmoid colon. No abscess formation or free air. 2. Fatty infiltration of the liver. Narrative 10/08/2018 6:29 PM MENTAL MEASUREMENTS TEACHER COMPARISON: ??None. TECHNIQUE: ??Images were obtained throug h the abdomen and pelvis following the administration of oral and 100 mL IOPAMIDOL 61 % IV SOLN contrast. FINDINGS: The lung bases are clear. Ther e is no pericardial or pleural effusion. There is diffuse decreased density of th e liver, consistent with hepatic steatosis. The spleen, pancreas, gallbladder, adrenal glands and kidneys are normal in appearance. There is focal inflammatory change of a small segment of the sigmoid colon centered at a diverticulum. There is no free air or abscess formation. The appendix is visualized and is normal. No dilated loo ps of small bowel are seen. No enlarged abdominal or pelvic lymph nodes are seen. No worrisome bony lesions are identified . Procedure Note Larisa Mendoza MD - 10/08/2018Formattin g of this note might be different from the original. COMPARISON: None. TECHNIQUE: Images were obtained through the abdomen and pelvis following the administration of oral and 100 mL IOPAMIDOL 61 % IV SOLN contrast. FINDINGS: The lung bases are clear. Ther e is no pericardial or pleural effusion. There is diffuse decreased density of th e liver, consistent with hepatic steatosis. The spleen, pancreas, gallbladder, adrenal glands and kidneys are normal in appearance. There is focal inflammatory change of a small segment of the sigmoid colon centered at a diverticulum. There is no free air or abscess formation. The appendix is visualized and is normal. No dilated loops of small bowel are seen. No enlarged abdominal or pelvic ly mph nodes are seen. No worrisome bony lesions are identified . IMPRESSION IMPRESSION: 1. Findings consistent with diverticulit is of the sigmoid colon. No abscess formation or free air. 2. Fatty infiltration of the liver. Bryan Cuellar MD RAD CT (ABNORMAL) Differential (10/08/2018 5:02 PM MENTAL MEASUREMENTS TEACHER) Patholo gist Method Time Signature Absolute 8.9 (H) 1.8 - 8.0 PN SOFT Neutrophils k/cmm Absolute 2.0 1.1 - 4.0 PN SOFT Lymphocytes k/cmm Absolute 0.7 0.2 - 0.8 PN SOFT Monocytes k/cmm Absolute 0.1 0.0 - 0.5 PN SOFT Eosinophils k/cmm Absolute 0.0 0.0 - 0.2 PN SOFT Basophils k/cmm Immature 0.3 0.0 - 0.5 PN SOFT Granulocytes % Specimen Anatomical Collection Method Collection Time Receive d Time (Source) Location / / Volume Laterality 10/08/2018 5:02 PM 8 5:02 MENTAL MEASUREMENTS TEACHER PM MENTAL MEASUREMENTS TEACHER Narrative PN SOFT - 10/08/2018 5:04 PM MENTAL MEASUREMENTS TEACHER Performed at [facility], [address] [place] [address] CLIA number [id number] Bryan Cuellar MD LAB_1 Performing Organization Address City/[facility] Phon e Number PN SOFT [address] [place] [address] Anion Gap (10/08/2018 5:02 PM MENTAL MEASUREMENTS TEACHER) athologist Signature ANION GAP 11 0 - 16 mEq/L PN SOFT Specimen Anatomical Collection Method Collection Time Receive d Time (Source) Location / / Volume Laterality 10/08/2018 5:02 PM 8 5:02 MENTAL MEASUREMENTS TEACHER PM MENTAL MEASUREMENTS TEACHER Narrative PN SOFT - 10/08/2018 5:20 PM MENTAL MEASUREMENTS TEACHER Performed at [facility], [address] [place] [address] CLIA number [id number] Bryan Cuellar MD LAB_1 Performing Organization Address City/[facility]/ZIP Code Phon e Number PN SOFT [address] [place] [address] Basic Metabolic Panel (10/08/2018 5:02 PM MENTAL MEASUREMENTS TEACHER) P athologist Signature Creatinine Serum 0.80 0.73 - PN SOFT 1.18 mg/dL Lab Glucose 95 70 - 100 PN SOFT mg/dL Comment: The stated glucose range is for the fast ing state. Non-fasting glucose range is 70-180 mg/d L CO2 27 22 - 31 mmol/L PN SOFT Chloride 100 98 - 109 mmol/L PN SOFT Potassium 4.0 3.5 - 5.2 mmol/L PN SOFT Sodium 138 136 - 145 mmol/L PN SOFT Blood Urea Nitrogen 13 9 - 26 mg/dL PN SOFT Calcium 9.7 8.4 - 10.4 mg/dL PN SOFT Est GFR Am >60 >60 mL/min/1.73m2 PN SOFT Est GFR Non-Afr Am >60 >60 mL/min/1.73m2 PN SOFT Comment: Normal>60, moderate decrease 30 - 59, se humble decrease 15 - 29, renal failure <15 mL/min/1.73 m2 NOTE: ??Choose the eGFR result above meño ropriate for the race of the patient. Specimen Anatomical Collection Method Collection Time Receive d Time (Source) Location / / Volume Laterality 10/08/2018 5:02 PM 8 5:02 MENTAL MEASUREMENTS TEACHER PM MENTAL MEASUREMENTS TEACHER Narrative PN SOFT - 10/08/2018 5:20 PM MENTAL MEASUREMENTS TEACHER Performed at [facility], [address] [place] [address] CLIA number [id number] Bryan Cuellar MD LAB_1 Performing Organization Address City/State/ZIP Code Phon e Number PN SOFT [address] [place] [address] [phone] Lipase (LIPAS) (10/08/2018 5:02 PM MENTAL MEASUREMENTS TEACHER) athologist Signature Lipase 12 8 - 78 U/L PN SOFT Specimen Anatomical Collection Method Collection Time Receive d Time (Source) Location / / Volume Laterality 10/08/2018 5:02 PM 8 5:02 MENTAL MEASUREMENTS TEACHER PM MENTAL MEASUREMENTS TEACHER Narrative PN SOFT - 10/08/2018 5:20 PM MENTAL MEASUREMENTS TEACHER Performed at [facility], [facility] [address] [place] [address] CLIA number [id number] Bryan Cuellar MD LAB_1 Performing Organization Address City/[facility]/ZIP Code Phon e Number PN SOFT [address] [place] [address] (ABNORMAL) C Reactive Protein (CRP) (10/08/2018 5:02 PM MENTAL MEASUREMENTS TEACHER) P athologist Signature CRP 5.6 (H) 0.0 - 0.5 PN SOFT mg/dL Specimen Anatomical Collection Method Collection Time Receive d Time (Source) Location / / Volume Laterality 10/08/2018 5:02 PM 8 5:02 MENTAL MEASUREMENTS TEACHER PM MENTAL MEASUREMENTS TEACHER Narrative PN SOFT - 10/08/2018 5:20 PM MENTAL MEASUREMENTS TEACHER Performed at [facility], [facility] [address] [place] [address] CLIA number [id number] Bryan Cuellar MD LAB_1 Performing Organization Address [facility] Phon e Number PN SOFT [address] [place] [address] (ABNORMAL) Complete Blood Count W/Diff (CBC) (10/08/2018 5:02 PM MENTAL MEASUREMENTS TEACHER) Patholo gist Method Time Signature White Blood Cell 11.8 (H) 3.8 - 11.0 PN SOFT Count k/cmm Red Blood Cell 4.85 4.20 - PN SOFT Count 5.90 m/cmm Hemoglobin 15.3 13.4 - PN SOFT 17.5 g/dL Hematocrit 44.1 39.0 - PN SOFT 51.0 % Mean Corpuscular 90.9 80.0 - PN SOFT Volume 100.0 fL RDW 11.9 11.0 - PN SOFT 15.0 % Platelet Count 252 140 - 450 PN SOFT k/cmm Specimen Anatomical Collection Method Collection Time Receive d Time (Source) Location / / Volume Laterality 10/08/2018 5:02 PM 8 5:02 MENTAL MEASUREMENTS TEACHER PM MENTAL MEASUREMENTS TEACHER Narrative PN SOFT - 10/08/2018 5:04 PM MENTAL MEASUREMENTS TEACHER Performed at [facility], [facility] [address] [place] [id number] CLIA number [id number] Bryan Cuellar MD LAB_1 Performing Organization Address City/[facility] Code Phon e Number PN SOFT [address] [place] [address] documented in this encounter Visit Diagnoses Diagnosis Left lower quadrant pain Abdominal pain, left lower quadrant Diverticulitis Diverticulitis of colon (without mention of hemorrhage) Left lower quadrant pain Abdominal pain, left lower quadrant Triage Assessment Note - Xuan Bishop, RN - 10/08/2018 4:26 PM MENTAL MEASUREMENTS TEACHER x2 days, pain in LLQ, nausea starting today, (denies radiation of pain, vomiting, and diarrhea), seen and evaluated yesterday-not treated and advised to return if symptoms did not improve AL MEASUREMENTS TEACHER documented in this encounter Administered Medications Inactive Administered Medications - up to 3 most recent administrations Medication Order MAR Action Action Date Dose Rate Site diatrizoate meglumine-sodium Given 10/08/2018 4:56 PM MENTAL MEASUREMENTS TEACHER 15 mL (GASTROGRAFIN) oral solution 15 mL 15 mL, Oral, ONCE, On 10/08/18 at 1715, For 1 dose diatrizoate meglumine-sodium (GASTROGRAFIN) Given 10/08/2018 5:5 0 PM MENTAL MEASUREMENTS TEACHER 15 mL oral solution 15 mL 15 mL, Oral, ONCE, On 10/08/18 at 1815, For 1 dose documented in this encounter Active and Recently Administered Medications Times are shown in MENTAL MEASUREMENTS TEACHER. Scheduled Medication Order 10/06/2018 10/07/2018 10/08/2018 diatrizoate meglumine-sodium (GASTROGRAFIN) oral solution 15 mL (COMPLETED) 1656 (Given - Provider: Xuan Bishop, RN) 15 mL, Oral, ONCE, 10/08/18 at 1715, For 1 dose diatrizoate meglumine-sodium (GASTROGRAFIN) oral solution 15 mL (COMPLETED) 1750 (Given - Provider: Lucy Garner RN) 15 mL, Oral, ONCE, 10/08/18 at 1815, For 1 dose documented in this encounter Care Teams Spring Fitter Relationship Specialty Start Date End Date Needs Pcp, Assignment PCP - General 03/04/15 [place] [address] documented as of this encounter
--- OUTSIDE RECORDS SUMMARY | 2022-07-26 14:58 | XMS_ITS | Encounter Summary ---
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 Screening for cholesterol level; [address] [address] Screening for HIV (human immunodeficienc y virus); Drive [place], [place] Screening for diabetes mellmelissa recios; [place] [address] Screening for hyperlipidemia; [id number] Tobacco abuse ([facility]C); Need for hepatitis C screening test; Elevated blood pressure reading; History of dive rticulitis; Obesity, Class II, BMI 35-39.9 ([facility]C) Social History Tobacco Use Types Packs/Day Years Used Date Smoking Tobacco: Every Day Cigarettes 0.5 17 Smokeless Tobacco: Never Alcohol Use Standard Drinks/Week Comments Yes 5 (1 standard drink = 0.6 oz pure alcoho l) Sex Assigned at Date Recorded Not on file documented as of this encounter Last Filed Vital Signs Vital Sign Reading Time Taken Comments Blood Pressure 161/103 12/24/2021 11:00 AM CABLE STRETCHER AND TESTER Pulse 84 12/24/2021 11:00 AM CABLE STRETCHER AND TESTER Temperature - - Respiratory Rate - - Oxygen Saturation - - Inhaled Oxygen Concentration - - Weight 103 kg (227 lb) 12/24/2021 11:00 AM CABLE STRETCHER AND TESTER Height 169.9 cm (5' 6.89) 12/24/2021 11:00 AM CABLE STRETCHER AND TESTER Body Mass Index 35.67 12/24/2021 11:00 AM CABLE STRETCHER AND TESTER documented in this encounter Patient Instructions Patient InstructionsKathryn Sanchez APRN, FIGURINE MAKER - 12/24/2021 11:00 AM CABLE STRETCHER AND TESTER Check your blood pressure once a day at home for the next week or two Check at different times of day Let me know the readings in 1-2 weeks Goals for healthy living: + Be physically active. Do activities that you enjoy, give you energy and are safe for you to do.Gradually build up the intensity (how hard your body is working) of activity. Long-term, aim for 30 minutes or more of activity most days of the week. Remember to check with your doctor before starting anyphysical activity program. + Eat real (not processed) food. Eat mostly vegetables, fruit, whole grains and lean proteins. That way, you--not food manufacturers--control the ingredients that go into your meals. + Aim for 5 servings of fruits and vegetables a day. Choose a variety of vegetables with different colors. Have fresh fruit for dessert. Limit deep-fried vegetables, such as turks and caicos islander fries. + Choose lean protein, such as chicken or fish. Try non-meat sources of protein such as beans, soy and other legumes. + Choose whole grains. Whole grain foods, such as whole-wheat bread, brown rice, barley, quinoa and oatmeal, contain the entire grain kernel and are better for your health. Limit refined grains, such as white bread and rice. + Satisfy hunger with unsaturated HEALTHY fats. Fat helps you feel satisfied. Choose unsaturated fats, such as canola or olive oils, nuts and seeds, oil-based dressings and avocados. Limit saturated fats, which are found in animal products and some plant oils, such as coconut and palm oils. + Pay attention to portion sizes. Use smaller plates, bowls and glasses. Portion out foods before you eat. + Drink water or unsweetened beverages. Avoid soda, sweetened coffees and teas, energy drinks and sports drinks, which are full of added sugar that your body does not need. Water is always the best option. + Eat mindfully. Take time to fully enjoy your food and pay attention to what you are eating. Make meals last 15 to 30 minutes. This gives your body a chance to become satisfied and tell your brain to stop eating. Pay attention to what you are eating, rather than doing other activities such as watching TV or driving. This helps you pay attention to your body???s signals of hunger and fullness. + Share meals when eating at restaurants, or put half of the entr??e in a to-go container before youstart eating. + Reading: Consider reading reputable sources based on research such as the book: How Not to by Tu Rocha Other Foods that can help your health: + There was a study done that showed taking 1/4 quarter cup (4 tablespoons) of ground flaxseed reduces blood pressure on average from 158/82 down to 143/75. This is a reduction on average of 15 points systolic and seven points diastolic. This would be expected to result in 46% fewer strokes and 29% less heart disease over time. (PMID: 05338190) The good news is that there are only good side effects of flax seeds! Ground flax seeds have been demonstrated in clinical studies to help control cholesterol, triglycerides, and blood sugar levels, reduce inflammation, and treat constipation (PMID: 74539731) Another article also noted that several preclinical and clinical studies have shown the beneficial cardiovascular effects of dietary supplementation with flaxseed. The cardiovascular effects of dietaryflaxseed have included reducing blood pressure, reduction in narrowing of arteries, a lowering of cholesterol, and an anti-inflammatory action. PMID: 88375510 + Whole grains can lower risk of chronic disease (PMID: 67261644), but refined grains can increase that risk. For example, [facility] researchers found that while the consumption of brown rice was associated with lower risk of type 2 diabetes, white rice was associated with higher risk. Daily servings of white rice were associated with a 17% greater risk of diabetes, whereas replacing 1/3 of a serving a day of white rice for brown rice might lead to a 16% drop in risk. Replacing white rice with oats and barley may be just as powerful with a 36% drop for risk of diabetes. (PMID: 71016011) Looks at the grains you eat: From the [facility]: There are several types of grains: Whole grains. These unrefined grains haven't had their bran and germ removed by milling; therefore, all of the nutrients remain intact. Whole grains are better sources of fiber and other important nutrients, such asselenium, potassium and magnesium. Whole grains are either single foods, such as brown rice and popcorn, or ingredients in products, such as buckwheat in pancakes or whole wheat in bread. Refined grains. In contrast to whole grains, refined grains are milled, a process that strips out both the bran and germ to give them a finer texture and longer shelf life. The refining process also removes many nutrients, including fiber. Refined grains include white flour, white rice, white bread and degermed cornflower. Many breads, cereals, crackers, desserts and pastries are made with refined grains, too. Theseprocessed foods will not keep your blood sugar levels steady, which is why you will be hungry again soon after consumption. Enriched grains. Enriched means that some or many of the nutrients that are lost during processing are added back in later. Most refined grains are enriched, and many enriched grains are also fortified -- meaning nutrients that don???t occur naturally in the food are added -- with other vitamins and minerals, such as folic acid and iron. Enriched grains lack fiber and are not an optimal choice because while they have traces of nutrition, many important vitamins and nutrients are lost during processing. + Avoid refined grains! E STRETCHER AND TESTER documented in this encounter Progress Notes Kathryn Sanchez APRN, CNP - 12/24/2021 11:00 AM CST Chief complaint: Chief Complaint Patient presents with ??? Annual Exam Fasting History of Present Illness: Raymundo Viera is a 36 y.o. male who presents to clinic today for routine physical exam. He had a history of diverticulitis in 2018, no flares since that time. A couple weeks ago he was coughing more often and since then has decreased the amount he has smoked.This has improved. He has been smoking for about 17 or 18 years. He smokes 10 cigarettes per day, rolling his own cigarettes. He used to be more active playing basketball and football and going to the gym. He has not been doing anything for exercise now. 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 He thinks he has been stuck by a needle in the past. Is getting up-to-date on hepatitis-B vaccine. Preventive Health Assessment: HIV screening: due Past Medical History: Past Medical History: Diagnosis Date ??? Diverticulitis 2018 ??? Tobacco abuse ([facility]) Social History: Lives locally. Has two children ages almost one and almost five. Medications: The patient currently has no medications in their medication list. Allergies: The patient has No Known Allergies. Review of Systems: Review of systems: Does not report chest pain, shortness of breath, bowel or bladder symptoms, numbness, tingling, swelling in the extremities. Weight is stable. No arthralgias or myalgias. Physical Examination: Vital Signs: BP (!) 161/103 (BP Location: Right Arm, BP Cuff Size: Large) Pulse 84 Ht 1.699 m (5' 6.89) Wt 103 kg (227 lb) BMI 35.67 kg/m?? Patient is alert, oriented, and pleasant. No acute distress. Head: Normocephalic. Respiratory: Normal respiratory effort. Lungs are clear with good breath sounds. Neck: Supple, no cervical lymphadenopathy. Thyroid nontender, without swelling or nodules palpated. Heart: Regular rate and rhythm, no murmurs, rubs, gallops. Neuro: Normal motor function. Ambulates without difficulty. Psych: Appropriate affect. Maintains eye contact with conversation. Appropriately dressed and well groomed. Skin: No visible rashes on the face. Legs: Without edema. Assessment and Plan: Raymundo was seen today for annual exam. Diagnoses and all orders for this visit: Routine physical examination - ALT (SGPT); Future - Complete Blood Count W/Diff; Future Screening for cholesterol level - Lipid Panel and Direct LDL(If Needed); Future Screening for HIV (human immunodeficiency virus) - HIV 1/2 Ag/Ab 4th Generation; Future Screening for diabetes mellitus - Basic Metabolic Panel; Future - Hgb A1C; Future Screening for hyperlipidemia Tobacco abuse ([facility]) - Urinalysis Routine, Micro/Culture if Pos: Clean Catch; Future Need for hepatitis C screening test - Hepatitis C Antibody, with Reflex; Future - Hepatitis C Antibody, with Reflex; Future Elevated blood pressure reading History of diverticulitis Obesity, Class II, BMI 35-39.9 ([facility]) Discussed his elevated blood pressure. I would recommend he monitor his blood pressure at home and notify me of the readings in 1-2 weeks. Discussed that tobacco abuse contributes to elevated blood pressure. He will consider quitting. Diet and lifestyle recommendations given. Orders Placed This Encounter Procedures ??? Lipid Panel and Direct LDL(If Needed) ??? ALT (SGPT) ??? Basic Metabolic Panel ??? Hgb A1C ??? Complete Blood Count W/Diff ??? Urinalysis Routine, Micro/Culture if Pos: Clean Catch ??? HIV 1/2 Ag/Ab 4th Generation ??? Hepatitis C Antibody, with Reflex ??? Hepatitis C Antibody, with Reflex Patient is to contact me with any new or worsening symptoms. The patient was discharged ambulatory and in stable condition and agreed with the above plan. Preventive health counseling provided including lifestyle, diet, and exercise recommendations. Follow-up in 1 year, sooner PRN any concerns. E STRETCHER AND TESTER documented in this encounter Plan of Treatment Not on filedocumented as of this encounter Results (ABNORMAL) Urinalysis Routine, Micro/Culture if Pos: Clean Catch (12/24/2021 12:17 PM CABLE STRETCHER AND TESTER) [facility] Method Time Signature Urine Culture Urinalysis 12/24/2021 [facility] Comment results do not 12:20 PM LABORATORY meet criteria CABLE STRETCHER AND TESTER for urine culture reflex. Urine Color Straw Straw-Yello 12/24/2021 [facility] w 12:20 PM LABORATORY CABLE STRETCHER AND TESTER Urine Clarity Clear Clear 12/24/2021 [facility] 12:20 PM LABORATORY CABLE STRETCHER AND TESTER Specific <=1.005 (A) 1.005 - 12/24/2021 [facility] Hurley, 1.030 12:20 PM LABORATORY Urine CABLE STRETCHER AND TESTER PH Urine 7.0 5.0 - 8.0 12/24/2021 [facility] 12:20 PM LABORATORY CABLE STRETCHER AND TESTER Protein, Negative Neg/Trace 12/24/2021 [facility] Urine Qual 12:20 PM LABORATORY (mg/dL) CABLE STRETCHER AND TESTER Glucose Urine Negative Negative 12/24/2021 [facility] Qual (mg/dL) 12:20 PM LABORATORY CABLE STRETCHER AND TESTER Ketones, Negative Negative 12/24/2021 [facility] Urine (mg/dL) 12:20 PM LABORATORY CABLE STRETCHER AND TESTER Urobilinogen, 0.2 <2.0 12/24/2021 [facility] Urine (EU/dL) 12:20 PM LABORATORY CABLE STRETCHER AND TESTER Bilirubin Negative Negative 12/24/2021 [facility] Urine 12:20 PM LABORATORY CABLE STRETCHER AND TESTER Blood, Urine Negative Neg/Trace 12/24/2021 [facility] 12:20 PM LABORATORY CABLE STRETCHER AND TESTER Nitrite Urine Negative Negative 12/24/2021 [facility] 12:20 PM LABORATORY CABLE STRETCHER AND TESTER Leukocyte Negative Negative 12/24/2021 [facility] Est. 12:20 PM LABORATORY CABLE STRETCHER AND TESTER Urine Source Clean Catch 12/24/2021 [facility] 12:20 PM LABORATORY CABLE STRETCHER AND TESTER Specimen Anatomical Collection Method Collection Time Receive d Time (Source) Location / / Volume Laterality Urine URINE SPECIMEN Non-blood 12/24/2021 12:17 2 COLLECTION, CLEAN Collection / PM CABLE STRETCHER AND TESTER 12:[address] CATCH / Unknown Unknown Kathryn Sanchez APRN, CNP LAB_1 Performing Organization Address City/[facility]/ZIP Code Phon e Number [facility] [address] [place] [address] Hepatitis C Antibody, with Reflex (12/24/2021 11:39 AM CABLE STRETCHER AND TESTER) [facility] Method Time Signature Hepatitis C Negative Negative 12/24/2021 [facility] Antibody (Non (Non 4:43 PM CABLE STRETCHER AND TESTER LABORATORY Reactive) Reactive) Comment: Antibodies to HCV not detected. Does not exclude the possiblity of exposure to HCV. Specimen Anatomical Collection Method / Collection Time Recei courtney Time (Source) Location / Volume Laterality Blood Venipuncture / 12/24/2021 11:39 2 Unknown AM CABLE STRETCHER AND TESTER 11:45 AM CABLE STRETCHER AND TESTER Kathryn Sanchez APRN, CNP LAB_1 Performing Organization Address City/State/ZIP Code Phon e Number [facility] [address] [place] [address] (ABNORMAL) Hgb A1C (12/24/2021 11:39 AM CABLE STRETCHER AND TESTER) [facility] Method Time Signature Hemoglobin A1C 5.7 (H) <=5.6 % 12/25/2021 [facility] 2:36 PM CABLE STRETCHER AND TESTER [facility] Specimen Anatomical Collection Method / Collection Time Recei courtney Time (Source) Location / Volume Laterality Blood Venipuncture / 12/24/2021 11:39 2 Unknown AM CABLE STRETCHER AND TESTER 11:45 AM CABLE STRETCHER AND TESTER Narrative [facility] - 12/25/2021 2:36 PM CABLE STRETCHER AND TESTER For patients not previously diagnosed with diabetes: 5.7-6.4%: Increased risk for diabetes 6.5% and greater: Diagnostic for diabete s For patients diagnosed with diabetes: <8.0%: Goal of therapy for ages 18-75 Clinicians may recommend a higher or low er goal for specific individuals. Kathryn Sanchez APRN, CNP LAB_1 Performing Organization Address City/State/ZIP Code Phon e Number [facility] [address] [address] Basic Metabolic Panel (12/24/2021 11:39 AM CABLE STRETCHER AND TESTER) athologist Signature Sodium 138 136 - 145 12/24/2021 [facility] mmol/L 12:43 PM CABLE STRETCHER AND TE[facility] LABORATORY Potassium 4.5 3.5 - 5.1 12/24/2021 [facility] mmol/L 12:43 PM CABLE [facility] AND TE[facility] LAB[facility]ATORY Chloride 102 98 - 109 12/24/2021 [facility] mmol/L 12:43 PM CABLE STRETCHER AND TESTER LABORATORY CO2 29 20 - 29 12/24/2021 [facility] mmol/L 12:43 PM CABLE STRETCHER AND TESTER LABORATORY Anion Gap 7 7 - 16 12/24/2021 [facility] mmol/L 12:43 PM CABLE STRETCHER AND TESTER LABORATORY Calcium 9.3 8.4 - 10.4 12/24/2021 [facility] mg/dL 12:43 PM CABLE STRETCHER AND TESTER LABORATORY BUN 10 7 - 26 12/24/2021 [facility] mg/dL 12:43 PM CABLE STRETCHER AND TESTER LABORATORY Creatinine 0.80 0.73 - 12/24/2021 [facility] 1.18 mg/dL 12:43 PM CABLE STRETCHER AND TESTER LABORATORY GFR, Estimated >60 >60 12/24/2021 [facility] mL/min/1.7 12:43 PM CABLE STRETCHER AND TESTER LABORATORY 3m2 Glucose 94 70 - 100 12/24/2021 [facility] mg/dL 12:43 PM CABLE STRETCHER AND TESTER LABORATORY Comment: The given reference range is fo r the fasting state. Non-fasting reference range for glucose is 70 - 180 mg/dL. Hours Fasting 14 12/24/2021 12:43 PM CABLE STRETCHER AND TESTER [facility] Specimen Anatomical Collection Method / Collection Time Recei courtney Time (Source) Location / Volume Laterality Blood Venipuncture / 12/24/2021 11:39 2 Unknown AM CABLE STRETCHER AND TESTER 11:45 AM CABLE STRETCHER AND TESTER Kathryn Sanchez APRN, CNP LAB_1 Performing Organization Address [facility]/ZIP [facility] Phon e Number [facility] [address] [place] [address] (ABNORMAL) ALT (SGPT) (12/24/2021 11:39 AM CABLE STRETCHER AND TESTER) athologist Signature ALT (SGPT) 138 (H) 0 - 55 U/L 12/24/2021 [facility] 12:43 PM CABLE STRETCHER AND TESTER LABORATORY Specimen Anatomical Collection Method / Collection Time Recei courtney Time (Source) Location / Volume Laterality Blood Venipuncture / 12/24/2021 11:39 2 Unknown AM CABLE STRETCHER AND TESTER 11:45 AM CABLE STRETCHER AND TESTER Kathryn Sanchez APRN, CNP LAB_1 Performing Organization Address [facility] Phon e Number [facility] [address] [place] [address] HIV 1/2 Ag/Ab 4th Generation (12/24/2021 11:39 AM CABLE STRETCHER AND TESTER) [facility] Method Time Signature HIV 1/2 Negative Negative 12/24/2021 [facility] Antigen/Antib (Non (Non 4:43 PM CABLE STRETCHER AND TESTER LABORATORY kenneth (4th Reactive) Reactive) generation) Comment: HIV-1 p24 Antigen and HIV-1/HIV -2 Antibody not detected Specimen Anatomical Collection Method / Collection Time Recei courtney Time (Source) Location / Volume Laterality Blood Venipuncture / 12/24/2021 11:39 2 Unknown AM CABLE STRETCHER AND TESTER 11:45 AM CABLE STRETCHER AND TESTER Kathryn Sanchez APRN, CNP LAB_1 Performing Organization Address City/[facility]/ZIP Code Phon e Number [facility] [place] [address] (ABNORMAL) Lipid Panel and Direct LDL(If Needed) (12/24/2021 11:39 AM CABLE STRETCHER AND TESTER) [facility] Method Time Signature Cholesterol 236 (H) 0 - 199 12/24/2021 [facility] mg/dL 12:43 PM CABLE STRETCHER AND TESTER LABORATORY Triglyceride 131 <=149 12/24/2021 [facility] mg/dL 12:43 PM CABLE STRETCHER AND TESTER LABORATORY HDL Cholesterol 43 >=40 12/24/2021 [facility] mg/dL 12:43 PM CABLE STRETCHER AND TESTER LABORATORY LDL, Calculated 167 (H) <130 12/24/2021 [facility] mg/dL 12:43 PM CABLE STRETCHER AND TESTER LABORATORY Non HDL Chol, 193 (H) <=159 12/24/2021 [facility] Calculated mg/dL 12:43 PM CABLE STRETCHER AND TESTER LABORATORY Cholesterol/HDL 5.5 12/24/2021 [facility] Ratio 12:43 PM CABLE STRETCHER AND TESTER LABORATORY Hours Fasting 14 12/24/2021 [facility] 12:43 PM CABLE STRETCHER AND TESTER LABORATORY Specimen Anatomical Collection Method / Collection Time Recei courtney Time (Source) Location / Volume Laterality Blood Venipuncture / 12/24/2021 11:39 2 Unknown AM CABLE STRETCHER AND TESTER 11:45 AM CABLE STRETCHER AND TESTER Kathryn Sanchez APRN, [place] LAB_1 Performing Organization Address City/State/ZIP Code Phon e Number [facility] [address] [place] [address] documented in this encounter Visit Diagnoses Diagnosis Routine physical examination - Primary Routine general medical examination at a health care facility Screening for cholesterol level Screening for lipoid disorders Screening for HIV (human immunodeficienc y virus) Special screening examination for other specified viral diseases Screening for diabetes mellitus Screening for hyperlipidemia Screening for lipoid disorders Tobacco abuse ([facility]) Tobacco use disorder Need for hepatitis C screening test Special screening examination for other specified viral diseases Elevated blood pressure reading Elevated blood pressure reading without diagnosis of hypertension History of diverticulitis Obesity, Class II, BMI 35-39.9 ([facility]) Obesity, unspecified documented in this encounter Care Teams Cd Mixer Relationship Specialty Start Date End Date Needs Pcp, Assignment PCP - General 03/04/15 [place] [address] documented as of this encounter
--- OUTSIDE RECORDS SUMMARY | 2022-07-26 14:58 | XMS_ITS | Encounter Summary ---
:1985 Author Organization [facility] Address [address] [address] Care Team Providers Name Role Phone Needs Pcp, Assignment Primary Care Provider Reason for Visit Reason Comments LETTER NEEDED Encounter Details Date Type Department Care Team Description 09/06/2020 Telephone [facility] Zina Treviño MD LETTER NEEDED [address] [facility] [address] [place] [address] [place] [address] [phone] (Wo rk) Social History Tobacco Use Types Packs/Day Years Used Date Smoking Tobacco: Every Day Cigarettes 0.5 17 Smokeless Tobacco: Never Sex Assigned at Date Recorded Not on file documented as of this encounter Nursing Notes Zina Treviño MD - 09/06/2020 12:25 PM CST Letter printed and given to [facility]. S SALESPERSON Elena Mckenna - 09/06/2020 8:55 AM CST Forms & Letters What form/letter are you requesting? Dad is calling needs a letter for work showing son is negative so he can go back to work today. Patient also stated the employer is requiring today's date on the letter This letter/other is needed from: Zina Treviño MD for return to work How would you like to receive your completed letter/other? wan support specialist at the clinic Additional comments (related to the above concern): Patient would like to pick it up in clinic today [facility]. Is it okay to leave a detailed message on your voicemail? Yes (Advise caller that the PN call back number will end with [phone] or unknown) (Advise caller letter/other can be faxed, mailed or dropped off. We will complete it as soon as possible and return it to the location you requested. If the request will take longer than 5 business days, we will contact you.) Please route to: AARON Senior S SALESPERSON documented in this encounter Plan of Treatment Not on filedocumented as of this encounter Visit Diagnoses Not on filedocumented in this encounter Care Teams Fitness And Wellness Instructor Relationship Specialty Start Date End Date Needs Pcp, Assignment PCP - General 03/04/15 [place] [address] documented as of this encounter
--- OUTSIDE RECORDS SUMMARY | 2022-07-26 14:58 | XMS_ITS | Encounter Summary ---
:1985 Author Organization [email or web address] Address [address], [place] [address] Care Team Providers Name Role Phone Needs Pcp, Assignment Primary Care Provider Encounter Details Date Type Department Care Team Description 12/24/2021 Lab Visit [facility] Screen ing for cholesterol level; Laboratory Screening for HIV (human imm unodeficiency virus); [id number] Routine physical examination ; [place], [place] Screening for diabetes mellitus; [id number] Need for hepatitis C screeni ng test; [phone] Tobacco abuse ( HRC) Social History Tobacco Use Types Packs/Day Years [...] Name Priority Date/Time Associated Diagnosis Comme nts URINALYSIS ROUTINE, Routine 12/24/2021 12:17 Tobacco abuse (HR C) Results for this MICRO/CULTURE IF POS PM ELEMENTARY SCHOOL DIRECTOR procedu re are in the results section. CBC AND DIFFERENTIAL Routine 12/24/2021 11:39 Routine physical Results for this PANEL AM ELEMENTARY SCHOOL DIRECTOR examination procedure are i n the results section. HIV 1/2 AG/AB 4TH Routine 12/24/2021 11:39 Screening for HIV R esults for this GEN AM ELEMENTARY SCHOOL DIRECTOR (human immunodeficiency proc edure are in virus) the results section. LIPID PANEL AND Routine 12/24/2021 11:39 Screening for Results for this DIRECT LDL(IF AM ELEMENTARY SCHOOL DIRECTOR cholesterol level procedure are in NEEDED) the results section. COMPLETE BLOOD Routine 12/24/2021 11:39 Routine physical Resul ts for this COUNT-W/DIFF AM ELEMENTARY SCHOOL DIRECTOR examination procedure are i n the results section. BASIC METABOLIC Routine 12/24/2021 11:39 Screening for diabete s Results for this PANEL AM ELEMENTARY SCHOOL DIRECTOR mellitus procedure are i n the results section. HEPATITIS C Routine 12/24/2021 11:39 Need for hepatitis C Res ults for this ANTIBODY, WITH AM ELEMENTARY SCHOOL DIRECTOR screening test procedure a re in REFLEX the results section. HGB A1C Routine 12/24/2021 11:39 Screening for diabetes R esults for this AM ELEMENTARY SCHOOL DIRECTOR mellitus procedure are i n the results section. ALT (SGPT) Routine 12/24/2021 11:39 Routine physical Results for this AM ELEMENTARY SCHOOL DIRECTOR examination procedure are i n the results section. documented in this encounter Results (ABNORMAL) Urinalysis Routine, Micro/Culture if Pos: Clean Catch (12/24/2021 12:17 PM ELEMENTARY SCHOOL DIRECTOR) [facility] Method Time Signature Urine Culture Urinalysis 12/24/2021 [facility] Comment results do not 12:20 PM LABORATORY meet criteria ELEMENTARY SCHOOL DIRECTOR for urine culture reflex. Urine Color Straw Straw-Yello 12/24/2021 [facility] w 12:20 PM LABORATORY ELEMENTARY SCHOOL DIRECTOR Urine Clarity Clear Clear 12/24/2021 [facility] 12:20 PM LABORATORY ELEMENTARY SCHOOL DIRECTOR Specific <=1.005 (A) 1.005 - 12/24/2021 [facility] [place], 1.030 12:20 PM LABORATORY Urine ELEMENTARY SCHOOL DIRECTOR PH Urine 7.0 5.0 - 8.0 12/24/2021 [facility] 12:20 PM LABORATORY ELEMENTARY SCHOOL DIRECTOR Protein, Negative Neg/Trace 12/24/2021 [facility] Urine Qual 12:20 PM LABORATORY (mg/dL) ELEMENTARY SCHOOL DIRECTOR Glucose Urine Negative Negative 12/24/2021 [facility] Qual (mg/dL) 12:20 PM LABORATORY ELEMENTARY SCHOOL DIRECTOR Ketones, Negative Negative 12/24/2021 [facility] Urine (mg/dL) 12:20 PM LABORATORY ELEMENTARY SCHOOL DIRECTOR Urobilinogen, 0.2 <2.0 12/24/2021 [facility] Urine (EU/dL) 12:20 PM LABORATORY ELEMENTARY SCHOOL DIRECTOR Bilirubin Negative Negative 12/24/2021 [facility] Urine 12:20 PM LABORATORY ELEMENTARY SCHOOL DIRECTOR Blood, Urine Negative Neg/Trace 12/24/2021 [facility] 12:20 PM LABORATORY ELEMENTARY SCHOOL DIRECTOR Nitrite Urine Negative Negative 12/24/2021 [facility] 12:20 PM LABORATORY ELEMENTARY SCHOOL DIRECTOR Leukocyte Negative Negative 12/24/2021 [facility] Est. 12:20 PM LABORATORY ELEMENTARY SCHOOL DIRECTOR Urine Source Clean Catch 12/24/2021 [facility] 12:20 PM LABORATORY ELEMENTARY SCHOOL DIRECTOR Specimen Anatomical Collection Method Collection Time Receive d Time (Source) Location / / Volume Laterality Urine URINE SPECIMEN Non-blood 12/24/2021 12:17 2 COLLECTION, CLEAN Collection / PM ELEMENTARY SCHOOL DIRECTOR 12:[address] CATCH / Unknown Unknown Kathryn Sanchez APRN, SOCORRO LAB_1 Performing Organization Address City/State/ZIP Code Phon e Number [facility] [address] [place] [address] (ABNORMAL) Complete Blood Count-W/Diff (12/24/2021 11:39 AM ELEMENTARY SCHOOL DIRECTOR) [facility] Method Time Signature WBC 7.9 3.5 - 10.5 12/24/2021 [facility] x10(9)/L 11:49 AM ELEMENTARY SCHOOL DIRECTOR LABORATORY RBC 4.81 4.32 - 12/24/2021 [facility] 5.72 11:49 AM ELEMENTARY SCHOOL DIRECTOR LABORATORY x10(12)/L Hemoglobin 15.3 13.5 - 12/24/2021 [facility] 17.5 g/dL 11:49 AM ELEMENTARY SCHOOL DIRECTOR LABORATORY HCT 44.4 38.8 - 12/24/2021 [facility] 50.0 % 11:49 AM ELEMENTARY SCHOOL DIRECTOR LABORATORY MCV 92.3 80.0 - 12/24/2021 [facility] 100.0 fL 11:49 AM ELEMENTARY SCHOOL DIRECTOR LABORATORY MCH 31.8 27.6 - 12/24/2021 [facility] 33.3 pg 11:49 AM ELEMENTARY SCHOOL DIRECTOR LABORATORY MCHC 34.5 31.5 - 12/24/2021 [facility] 35.2 g/dL 11:49 AM ELEMENTARY SCHOOL DIRECTOR LABORATORY RDW 11.7 (L) 11.9 - 12/24/2021 [facility] 15.5 % 11:49 AM ELEMENTARY SCHOOL DIRECTOR LABORATORY Platelets 253 150 - 450 12/24/2021 [facility] x10(9)/L 11:49 AM ELEMENTARY SCHOOL DIRECTOR LABORATORY Automated NRBC 0 <=0 /100 12/24/2021 [facility] WBC 11:49 AM ELEMENTARY SCHOOL DIRECTOR LABORATORY Neutrophil 5.7 1.7 - 7.0 12/24/2021 [facility] Absolute 10(9)/L 11:49 AM ELEMENTARY SCHOOL DIRECTOR LABORATORY Lymphocyte 1.4 1.0 - 4.8 12/24/2021 [facility] Absolute 10(9)/L 11:49 AM ELEMENTARY SCHOOL DIRECTOR LABORATORY Monocytes 0.5 0.2 - 0.9 12/24/2021 [facility] Absolute 10(9)/L 11:49 AM ELEMENTARY SCHOOL DIRECTOR LABORATORY Eosinophil 0.3 0.0 - 0.5 12/24/2021 [facility] Absolute 10(9)/L 11:49 AM ELEMENTARY SCHOOL DIRECTOR LABORATORY Basophil 0.0 0.0 - 0.3 12/24/2021 [facility] Absolute 10(9)/L 11:49 AM ELEMENTARY SCHOOL DIRECTOR LABORATORY Immature Gran % 0.4 0.0 - 0.5 12/24/2021 [facility] % 11:49 AM ELEMENTARY SCHOOL DIRECTOR LABORATORY Specimen Anatomical Collection Method / Collection Time Recei courtney Time (Source) Location / Volume Laterality Blood Venipuncture / 12/24/2021 11:39 2 Unknown AM ELEMENTARY SCHOOL DIRECTOR 11:45 AM ELEMENTARY SCHOOL DIRECTOR Kathryn Sanchez APRN, CNP LAB_1 Performing Organization Address City/[facility]/ZIP Code Phon e Number [facility] [address] [place] [address] Hepatitis C Antibody, with Reflex (12/24/2021 11:39 AM ELEMENTARY SCHOOL DIRECTOR) [facility] Method Time Signature Hepatitis C Negative Negative 12/24/2021 [facility] Antibody (Non (Non 4:43 PM ELEMENTARY SCHOOL DIRECTOR LABORATORY Reactive) Reactive) Comment: Antibodies to HCV not detected. Does not exclude the possiblity of exposure to HCV. Specimen Anatomical Collection Method / Collection Time Recei courtney Time (Source) Location / Volume Laterality Blood Venipuncture / 12/24/2021 11:39 2 Unknown AM ELEMENTARY SCHOOL DIRECTOR 11:45 AM ELEMENTARY SCHOOL DIRECTOR Kathryn Sanchez APRN, CNP LAB_1 Performing Organization Address City/State/ZIP Code Phon e Number [facility] [address] [place] [address] (ABNORMAL) Hgb A1C (12/24/2021 11:39 AM ELEMENTARY SCHOOL DIRECTOR) [facility] Method Time Signature Hemoglobin A1C 5.7 (H) <=5.6 % 12/25/2021 [facility] 2:36 PM ELEMENTARY SCHOOL DIRECTOR [facility] Specimen Anatomical Collection Method / Collection Time Recei courtney Time (Source) Location / Volume Laterality Blood Venipuncture / 12/24/2021 11:39 2 Unknown AM ELEMENTARY SCHOOL DIRECTOR 11:45 AM ELEMENTARY SCHOOL DIRECTOR Narrative [facility] - 12/25/2021 2:36 PM ELEMENTARY SCHOOL DIRECTOR For patients not previously diagnosed with diabetes: 5.7-6.4%: Increased risk for diabetes 6.5% and greater: Diagnostic for diabete s For patients diagnosed with diabetes: <8.0%: Goal of therapy for ages 18-75 Clinicians may recommend a higher or low er goal for specific individuals. Kathryn Sanchez APRN, BILL CUTTER LAB_1 Performing Organization Address City/State/ZIP Code Phon e Number [facility] [address] [address] Basic Metabolic Panel (12/24/2021 11:39 AM ELEMENTARY SCHOOL DIRECTOR) P athologist Signature Sodium 138 136 - 145 12/24/2021 [facility] mmol/L 12:43 PM ELEMENTARY SCHOOL DIRECTOR LABORATORY Potassium 4.5 3.5 - 5.1 12/24/2021 [facility] mmol/L 12:43 PM ELEMENTARY SCHOOL DIRECTOR LABORATORY Chloride 102 98 - 109 12/24/2021 [facility] mmol/L 12:43 PM ELEMENTARY SCHOOL DIRECTOR LABORATORY CO2 29 20 - 29 12/24/2021 [facility] mmol/L 12:43 PM ELEMENTARY SCHOOL DIRECTOR LABORATORY Anion Gap 7 7 - 16 12/24/2021 [facility] mmol/L 12:43 PM ELEMENTARY SCHOOL DIRECTOR LABORATORY Calcium 9.3 8.4 - 10.4 12/24/2021 [facility] mg/dL 12:43 PM ELEMENTARY SCHOOL DIRECTOR LABORATORY BUN 10 7 - 26 12/24/2021 [facility] mg/dL 12:43 PM ELEMENTARY SCHOOL DIRECTOR LABORATORY Creatinine 0.80 0.73 - 12/24/2021 [facility] 1.18 mg/dL 12:43 PM ELEMENTARY SCHOOL DIRECTOR LABORATORY GFR, Estimated >60 >60 12/24/2021 [facility] mL/min/1.7 12:43 PM ELEMENTARY SCHOOL DIRECTOR LABORATORY 3m2 Glucose 94 70 - 100 12/24/2021 [facility] mg/dL 12:43 PM ELEMENTARY SCHOOL DIRECTOR LABORATORY Comment: The given reference range is fo r the fasting state. Non-fasting reference range for glucose is 70 - 180 mg/dL. Hours Fasting 14 12/24/2021 12:43 PM ELEMENTARY SCHOOL DIRECTOR [facility] Specimen Anatomical Collection Method / Collection Time Recei courtney Time (Source) Location / Volume Laterality Blood Venipuncture / 12/24/2021 11:39 2 Unknown AM ELEMENTARY SCHOOL DIRECTOR 11:45 AM ELEMENTARY SCHOOL DIRECTOR Kathryn Sanchez APRN, CNP LAB_1 Performing Organization Address [facility]/ZIP [facility] Phon e Number [facility] [address] [place], [place] [address] (ABNORMAL) ALT (SGPT) (12/24/2021 11:39 AM ELEMENTARY SCHOOL DIRECTOR) P athologist Signature ALT (SGPT) 138 (H) 0 - 55 U/L 12/24/2021 [facility] 12:43 PM ELEMENTARY SCHOOL DIRECTOR LABORATORY Specimen Anatomical Collection Method / Collection Time Recei courtney Time (Source) Location / Volume Laterality Blood Venipuncture / 12/24/2021 11:39 2 Unknown AM ELEMENTARY SCHOOL DIRECTOR 11:45 AM ELEMENTARY SCHOOL DIRECTOR Kathryn Sanchez APRN, CNP LAB_1 Performing Organization Address [facility] Phon e Number [facility] [address] [place] [address] HIV 1/2 Ag/Ab 4th Generation (12/24/2021 11:39 AM ELEMENTARY SCHOOL DIRECTOR) [facility] Method Time Signature HIV 1/2 Negative Negative 12/24/2021 [facility] Antigen/Antib (Non (Non 4:43 PM ELEMENTARY SCHOOL DIRECTOR LABORATORY kenneth (4th Reactive) Reactive) generation) Comment: HIV-1 p24 Antigen and HIV-1/HIV -2 Antibody not detected Specimen Anatomical Collection Method / Collection Time Recei courtney Time (Source) Location / Volume Laterality Blood Venipuncture / 12/24/2021 11:39 2 Unknown AM ELEMENTARY SCHOOL DIRECTOR 11:45 AM ELEMENTARY SCHOOL DIRECTOR Kathryn Sanchez APRN, CNP LAB_1 Performing Organization Address City/[facility]/ZIP Code Phon e Number [facility] [address] [place] [address] (ABNORMAL) Lipid Panel and Direct LDL(If Needed) (12/24/2021 11:39 AM ELEMENTARY SCHOOL DIRECTOR) [facility] Method Time Signature Cholesterol 236 (H) 0 - 199 12/24/2021 [facility] mg/dL 12:43 PM ELEMENTARY SCHOOL DIRECTOR LABORATORY Triglyceride 131 <=149 12/24/2021 [facility] mg/dL 12:43 PM ELEMENTARY SCHOOL DIRECTOR LABORATORY HDL Cholesterol 43 >=40 12/24/2021 [facility] mg/dL 12:43 PM ELEMENTARY SCHOOL DIRECTOR LABORATORY LDL, Calculated 167 (H) <130 12/24/2021 [facility] mg/dL 12:43 PM ELEMENTARY SCHOOL DIRECTOR LABORATORY Non HDL Chol, 193 (H) <=159 12/24/2021 [facility] Calculated mg/dL 12:43 PM ELEMENTARY SCHOOL DIRECTOR LABORATORY Cholesterol/HDL 5.5 12/24/2021 [facility] Ratio 12:43 PM ELEMENTARY SCHOOL DIRECTOR LABORATORY Hours Fasting 14 12/24/2021 [facility] 12:43 PM ELEMENTARY SCHOOL DIRECTOR LABORATORY Specimen Anatomical Collection Method / Collection Time Recei courtney Time (Source) Location / Volume Laterality Blood Venipuncture / 12/24/2021 11:39 2 Unknown AM ELEMENTARY SCHOOL DIRECTOR 11:45 AM ELEMENTARY SCHOOL DIRECTOR Kathryn Sanchez APRN, SOCORRO LAB_1 Performing Organization Address City/State/ZIP Code Phon e Number [facility] [address] [place] [address] documented in this encounter Visit Diagnoses Diagnosis Screening for cholesterol level Screening for lipoid disorders Screening for HIV (human immunodeficienc y virus) Special screening examination for other specified viral diseases Routine physical examination Routine general medical examination at a health care facility Screening for diabetes mellitus Need for hepatitis C screening test Special screening examination for other specified viral diseases Tobacco abuse (HRC) Tobacco use disorder documented in this encounter Care Teams Paddock Judge Relationship Specialty Start Date End Date Needs Pcp, Assignment PCP - General 03/04/15 [place] [address] documented as of this encounter
--- OUTSIDE RECORDS SUMMARY | 2022-07-26 14:58 | XMS_ITS | Encounter Summary ---
:1985 Author Organization [facility] Address [address], [place] [address] Care Team Providers Name Role Phone Needs Pcp, Assignment Primary Care Provider Reason for Visit Procedure/Equipment (Routine) - Incomplete Specialty Diagnoses / Procedures Referred By Contact Refer red To Contact Diagnoses Left lower quadrant pain Bryan Cuellar MD Procedures CT Abd Pelvis W IV Cont [address] [place], [place] [address] Referral ID Status Reason Start Date Expiration Date Visits V isits Requested Authorized [id number] Incomplete 10/08/2018 01/07/2020 1 1 Encounter Details Date Type Department Care Team Description 10/08/[address] Scan Left lower quadrant [address] [place] [address] Social History Tobacco Use Types Packs/Day Years Used Date Smoking Tobacco: Every Day Cigarettes 0.5 17 Smokeless Tobacco: Never Sex Assigned at Date Recorded Not on file documented as of this encounter Plan of Treatment Not on filedocumented as of this encounter Procedures Procedure Name Priority Date/Time Associated Diagnosis Comme nts CT ABD PELVIS W IV STAT 10/08/2018 6:12 PM Left lower quadr ant Results for this CONT GRINDING MACHINE OPERATOR PORTABLE pain procedure are i n the results section. documented in this encounter Results CT Abd Pelvis W IV Cont (10/08/2018 6:12 PM GRINDING MACHINE OPERATOR PORTABLE) Anatomical Region Laterality Modality Abdomen, Pelvis Computed Tomography Specimen (Source) Anatomical Collection Method Collection Time Re ceived Time Location / / Volume Laterality 10/08/2018 5:56 PM GRINDING MACHINE OPERATOR PORTABLE Impressions 10/08/2018 6:29 PM GRINDING MACHINE OPERATOR PORTABLE IMPRESSION: ?? 1. Findings consistent with diverticulit is of the sigmoid colon. No abscess formation or free air. 2. Fatty infiltration of the liver. Narrative 10/08/2018 6:29 PM GRINDING MACHINE OPERATOR PORTABLE COMPARISON: ??None. TECHNIQUE: ??Images were obtained throug [...] the liver. Bryan Cuellar MD RAD CT documented in this encounter Visit Diagnoses Diagnosis Left lower quadrant pain Abdominal pain, left lower quadrant documented in this encounter Administered Medications Inactive Administered Medications - up to 3 most recent administrations Medication Order MAR Action Action Date Dose Rate Site iopamidol (ISOVUE-300) 61 % Given 10/08/2018 6:15 PM GRINDING MACHINE OPERATOR PORTABLE 100 mL injection 100 mL 100 mL, Intravenous, ONCE, On Sun10/08/18 at 1815, For 1 dose sodium chloride 0.9% injection 10 mL Given 10/08/2018 6:15 PM GRINDING MACHINE OPERATOR PORTABLE 10 mL 10 mL, Intravenous, ONCE, On Sun10/08/18 at 1815, For 1 dose documented in this encounter Care Teams Director Biologics Relationship Specialty Start Date End Date Needs Pcp, Assignment PCP - General 03/04/15 [place] [address] documented as of this encounter
--- OUTSIDE RECORDS SUMMARY | 2022-07-26 14:58 | XMS_ITS | Encounter Summary ---
:1985 Author Organization [facility] Address [address] [address] Care Team Providers Name Role Phone Needs Pcp, Assignment Primary Care Provider Reason for Visit Reason Comments Abdominal Pain Encounter Details Date Type Department Care Team Description 10/07/[address] [facility] Chucho Saldivar er abdominal pain Care MD Renzo [address] [address] [phone] Social History Tobacco Use Types Packs/Day Years Used Date Smoking Tobacco: Never Assessed Sex Assigned at Date Recorded Not on file documented as of this encounter Last Filed Vital Signs Vital Sign Reading Time Taken Comments Blood Pressure 128/82 10/07/2018 4:54 PM WHEEL PRESS CLERK Pulse 85 10/07/2018 4:54 PM WHEEL PRESS CLERK Temperature 36.8 ??C (98.2 ??F) 10/07/2018 4:54 PM WHEEL PRESS CLERK Respiratory Rate 20 10/07/2018 4:54 PM WHEEL PRESS CLERK Oxygen Saturation 98% 10/07/2018 4:54 PM WHEEL PRESS CLERK Inhaled Oxygen Concentration - - Weight - - Height - - Body Mass Index - - documented in this encounter ED Notes Renzo Saldivar MD - 10/07/2018 5:51 PM CST NAME: NEERAJ MOLINA MR#: [id number] CSN: [id number] AUTHENTICATING CLINICIAN: Renzo Saldivar MD CONFIRM #: [id number] LOC: 520 URGENT CARE PROGRESS NOTE DATE OF VISIT: 10/07/2018 : 1985 SUBJECTIVE: He is a 33-year-old male who is complaining of lower abdominal pain starting at 2:30 a.m. today, midline, intermittent and a few times a day he noticed shooting pain there. He has not had this kind of pain before. Nothing seems to affect it. It is nonradiating. No nausea, vomiting. He had a few bowel movements today which is more than his baseline, but they seem normal. Some pain in this area whilevoiding. He denies any pain here. He is not on any chronic medication. PAST MEDICAL HISTORY: Reviewed by me in [facility]. ALLERGIES: Reviewed by me in [facility]. OBJECTIVE: VITAL SIGNS: Reviewed by me in [facility]. GENERAL: On exam, he does not look overtly ill. Normal skin color. HEENT: No scleral jaundice. ABDOMEN: Bowel sounds hypoactive. Abdominal exam revealed mild tenderness to deep palpation in the suprapubic area, but not in the lateral quadrants, upper or lower. He has no rebound tenderness and jumping up and down in the room does not cause him pain. No CVA tenderness. I ordered urinalysis and reviewed it myself, normal. I ordered CBC and diff and reviewed it myself. White count was a bit elevated at 11.6 with some left shift. ASSESSMENT: Intermittent periumbilical/suprapubic abdominal pain. There is fairly benign presentation here. White count elevated and left shifted. PLAN: We discussed diagnostic step like further imaging as in CT, but patient would like to forego it for now. I was agreeable to that given his benign presentation here. He is to be seen tomorrow if the pain is not resolving or certainly during the night in the emergency department if there are any new or more severe symptoms. OS:MEDQ C: CONFIRM #: [id number] L PRESS CLERK documented in this encounter Plan of Treatment Not on filedocumented as of this encounter Procedures Procedure Name Priority Date/Time Associated Comments Diagnosis COMPLETE BLOOD STAT 10/07/2018 5:18 PM Lower abdominal Resu lts for this COUNT-W/DIFF WHEEL PRESS CLERK pain procedure are i n the results section. DIFFERENTIAL STAT 10/07/2018 5:18 PM Results f or this WHEEL PRESS CLERK procedure are i n the results section. URINALYSIS ROUTINE, STAT 10/07/2018 5:09 PM Lower abdominal Results for this MICRO/CULTURE IF POS WHEEL PRESS CLERK pain procedu re are in the results section. documented in this encounter Results (ABNORMAL) Differential (10/07/2018 5:18 PM WHEEL PRESS CLERK) [facility] Method Time Signature Absolute 9.1 (H) 1.8 - 8.0 [facility] Neutrophils k/cmm Absolute 1.6 1.1 - 4.0 [facility] Lymphocytes k/cmm Absolute 0.8 0.2 - 0.8 [facility] Monocytes k/cmm Absolute 0.0 0.0 - 0.5 [facility] Eosinophils k/cmm Absolute 0.0 0.0 - 0.2 [facility] Basophils k/cmm Immature 0.5 0.0 - 0.5 [facility] Granulocytes % Specimen Anatomical Collection Method Collection Time Receive d Time (Source) Location / / Volume Laterality 10/07/2018 5:18 PM 8 5:18 WHEEL PRESS CLERK PM WHEEL PRESS CLERK Narrative [facility] - 10/07/2018 5:20 PM WHEEL PRESS CLERK Performed at [facility], [address] [place] [address] CLIA number [id number] Renzo Saldivar MD LAB_1 Performing Organization Address City/State/ZIP Code Phon e Number [facility] [address] [place] [address] (ABNORMAL) Complete Blood Count-W/Diff (10/07/2018 5:18 PM WHEEL PRESS CLERK) [facility] Method Time Signature White Blood Cell 11.6 (H) 3.8 - 11.0 [facility] Count k/cmm Red Blood Cell 4.78 4.20 - [facility] Count 5.90 m/cmm Hemoglobin 14.8 13.4 - [facility] 17.5 g/dL Hematocrit 42.1 39.0 - [facility] 51.0 % Mean Corpuscular 88.1 80.0 - [facility] Volume 100.0 fL RDW 11.9 11.0 - [facility] 15.0 % Platelet Count 238 140 - 450 [facility] k/cmm Specimen Anatomical Collection Method Collection Time Receive d Time (Source) Location / / Volume Laterality 10/07/2018 5:18 PM 8 5:18 WHEEL PRESS CLERK PM WHEEL PRESS CLERK Narrative [facility] - 10/07/2018 5:20 PM WHEEL PRESS CLERK Performed at [facility], [facility] [address] [place] [id number] CLIA number [id number] Renzo Saldivar MD LAB_1 Performing Organization Address [facility] Phon e Number [facility] [address] [place] [address] Urinalysis Routine, Micro/Culture if Pos (10/07/2018 5:09 PM WHEEL PRESS CLERK) [facility] Method Time Signature Urine Type URINE:clean [facility] cat Turbidity Clear Clear [facility] U BILI Negative Negative [facility] Blood Urine Negative Neg - Trace [facility] Glucose, Negative Neg-30 [facility] Qualitative U mg/dL Ketones Negative Negative [facility] Leukocyte Negative Negative [facility] Esterase Urine Nitrite Urine Negative Negative [facility] pH Urine 7.5 5.0 - 8.0 [facility] Protein Urine Negative Neg - Trace [facility] mg/dL U Specific <=1.005 1.005 - [facility] [place] 1.030 Urobilinogen Negative Negative [facility] Urine Eu/dL Specimen Anatomical Collection Method Collection Time Receive d Time (Source) Location / / Volume Laterality 10/07/2018 5:09 PM 8 5:12 WHEEL PRESS CLERK PM WHEEL PRESS CLERK Narrative [facility] - 10/07/2018 5:13 PM WHEEL PRESS CLERK Performed at [facility], [facility] [address] [place] [address] CLIA number [id number] Renzo Saldivar MD LAB_1 Performing Organization Address [facility] Phon e Number [facility] [address] [place] [address] documented in this encounter Visit Diagnoses Diagnosis Lower abdominal pain Abdominal pain, other specified site Triage Assessment Note - Trish Mcdonald RN - 10/07/2018 4:53 PM CST C/o mid low abd pain starting at 0230. Denies nausea, fever. L PRESS CLERK documented in this encounter Care Teams Movement Education Specialist Relationship Specialty Start Date End Date Needs Pcp, Assignment PCP - General 03/04/15 [place] [address] documented as of this encounter
--- OUTSIDE RECORDS SUMMARY | 2022-07-26 14:58 | XMS_ITS | Encounter Summary ---
:1985 [facility] Address [address], [place] [address] Care Team Providers Name Role Phone Needs Pcp, Assignment Primary Care Provider Encounter Details Date Type Department Care Team Description 12/29/2021 Notes/Orders [facility] Kathryn Sanchez LFTs Medicine E, M[employer]AG OPERATOR, INST[employer] (Primary Dx) [address] [place] [address] [place], [place] [phone] (Wo rk) Social History Tobacco Use Types Packs/Day Years Used Date Smoking Tobacco: Every Day Cigarettes 0.5 17 Smokeless Tobacco: Never Alcohol Use Standard Drinks/Week Comments Yes 5 (1 standard drink = 0.6 oz pure alcoho l) Sex Assigned at Date Recorded Not on file documented as of this encounter Plan of Treatment Not on filedocumented as of this encounter Visit Diagnoses Diagnosis Elevated LFTs - Primary Other abnormal blood chemistry documented in this encounter Care Teams Bunch Maker Hand Relationship Specialty Start Date End Date Needs Pcp, Assignment PCP - General 03/04/15 [place], [place] [id number] documented as of this encounter
--- OUTSIDE RECORDS SUMMARY | 2022-07-26 14:58 | XMS_ITS | Clinical Summary ---
:1985 Author Organization [facility] Address [address] [place] [address] Care Team Providers Name Role Phone Needs Pcp, Assignment Primary Care Provider Source Comments You are receiving this document as you are listed as the primary care provider,follow-up provider, or the patient has been referred to you for consultation.This is in compliance with the Medicare and Medicaid EHR Incentive Program,which states Providers who transition their patient to another setting of careor provider of care or refers their patient to another provider of care shouldprovide summarycare record for each transition of care or referral. [facility] Allergies No known active allergies Medications No known medications Active Problems Problem Noted Date History of diverticulitis 12/24/2021 Tobacco abuse 12/24/2021 Obesity, Class II, BMI 35-39.9 12/24/2021 Immunizations Name Administration Dates Next Due HepB Adult (Engerix-B, 20+ yrs, 3 dose series) 10/07/2021, 1 Tdap 11/27/2012 Family History Relation Name Status Comments Father Alive Mother Alive Brother Alive Sister 1 Alive Sister 2 Alive Social History Tobacco Use Types Packs/Day Years Used Date Smoking Tobacco: Every Day Cigarettes 0.5 17 Smokeless Tobacco: Never Tobacco Cessation: Counseling Given: Yes Alcohol Use Standard Drinks/Week Comments Yes 5 (1 standard drink = 0.6 oz pure alcoho l) Sex Assigned at Date Recorded Not on file Last Filed Vital Signs Vital Sign Reading Time Taken Comments Blood Pressure 161/103 12/24/2021 11: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 Pulse 84 12/24/2021 11: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 Temperature 36.6 ??C (97.8 ??F) 04/29/2021 3:12 PM CDT Respiratory Rate 20 04/29/2021 3:12 PM CDT Oxygen Saturation 100% 04/29/2021 3:12 PM CDT Inhaled Oxygen Concentration - - Weight 103 kg (227 lb) 12/24/2021 11: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 Height 169.9 cm (5' 6.89) 12/24/2021 11: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 Body Mass Index 35.67 12/24/2021 11: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 Plan of Treatment Health Maintenance Due Date Last Done Comments COVID-19 Vaccine (#1) 1985 Pneumococcal (1 - PCV) 1989 HepB (3) 12/16/2021 10/07/2021, 08/26/2021 Influenza (#1) 2022 DTaP/Tdap/Td (2 - Tdap) 11/27/2022 11/27/2012 Adult Preventive Visit 12/24/2023 12/24/2021 Cholesterol 12/24/2026 12/24/2021 Zoster/Shingles (1 of 2) 2033 HIV Screening (Preventive Completed 12/24/2021 Services) Hep C Screening (Preventive Completed 12/24/2021 Services) HPV Vaccine Aged Out No longer eligib le based on patient's age to complete this to pic HepA Aged Out No longer eligib le based on patient's age to complete this to pic Hib Aged Out No longer eligib le based on patient's age to complete this to pic IPV (Polio) Aged Out No longer eligib le based on patient's age to complete this to pic MCV4 Aged Out No longer eligib le based on patient's age to complete this to pic Insurance Payer Benefit Plan / Subscriber ID Effective Dates Phone Addre ss Type Group BCBS BCBS OUT OF [id number] 2020-Present [address] [address] [place] [address] Care Teams Ore Fielder Relationship Specialty Start Date End Date Needs Pcp, Assignment PCP - General 03/04/15 [place] [address]
--- OUTSIDE RECORDS SUMMARY | 2022-07-26 14:58 | XMS_ITS ---
:1985 Author Care Team Providers Name Role Phone Liudmila Rudd Primary Care Provider Unavailable Allergies None recorded. Medications Name Status Start Date Stop Date ? ? amoxicillin 875 mg-potassium clavulanate 125 mg tablet Active ? Not available TAKE 1 TABLET BY MOUTH TWICE DAILY UNTIL ALL TAKEN azithromycin 250 mg tablet Active ? Not a vailable chlorhexidine gluconate 0.12 % mouthwash Active ? Not available SWISH AND SPIT 15ML BY MOUTH TWICE DAILY FOR 7 DAYS. hydrocodone 5 mg-acetaminophen 325 mg tablet Active ? Not available TAKE 1 TABLET BY MOUTH EVERY 6 HOURS NEEDED FOR PAIN. ibuprofen 600 mg tablet Active ? Not avai lable TAKE 1 TABLET BY MOUTH EVERY 6 HOURS NEEDED FOR PAIN. ketoconazole 2 % topical cream Active ? N ot available APPLY TOPICALLY TWICE DAILY Lidocaine Viscous 2 % mucosal solution Active ? Not available nystatin 100,000 unit/mL oral suspension Active ? Not available TAKE 5 ML AND SWISH OR PAINT TONGUE FOU R TIMES DAILY UNTIL 1 DAY BEYOND PLAQUE RESOLUTION UP TO 10 DAYS oxycodone 5 mg tablet Active ? Not availa ble TAKE 1 TO 2 TABLETS BY MOUTH EVERY 4 TO 6 HOURS NEEDED FOR P AIN. sodium fluoride 1.1 % dental paste Active ? Not available Problems None recorded. Procedures None recorded. Results Lab Results None recorded. Past Encounters 02/24/2022 Administrative Reason for Encounter LAVERN Chong: [address] [address], Ph. [phone] 10/07/2021 Requires Course of Hepatitis B Vaccinati on; Administrative Reason for Encounter; History and Physical Examination, Occupation LAVERN Chong: [address] [address], Ph. [phone] 08/26/2021 Administrative Reason for Encounter; His tory and Physical Examination, Occupation; Requires Course of Hepatitis B Vaccination HAKAN ObandoC: [address], [place] [address], Ph. [phone] Social History None recorded. Vaccine List Vaccine Type Hep B, adult 08/26/2021?1 mL 10/07/2021?20 mL 02/24/2022 Tdap 11/27/2012 Plan of Care Reminders Provider Appointments None recorded. ? ? Lab None recorded. ? ? Referral None recorded. ? ? Procedures None recorded. ? ? Surgeries None recorded. ? ? Imaging None recorded. ? ? Vitals None recorded.
--- OUTSIDE RECORDS SUMMARY | 2022-07-26 14:58 | XMS_ITS | Encounter Summary ---
:1985 Author Organization [facility] Address [address] [place] [address] Care Team Providers Name Role Phone Needs Pcp, Assignment Primary Care Provider Reason for Visit Reason Comments PAIN, MOUTH Encounter Details Date Type Department Care Team Description 04/29/2021 Hospital Encounter [facility] Dalila Tyson MD Tongue burning [facility] [address] [address] [place], [place] [address] [address] [place], [place] [phone] [address] (Work) [phone] Social History Tobacco Use Types Packs/Day Years Used Date Smoking Tobacco: Every Day Cigarettes 0.5 17 Smokeless Tobacco: Never Sex Assigned at Date Recorded Not on file documented as of this encounter Last Filed Vital Signs Vital Sign Reading Time Taken Comments Blood Pressure 145/89 04/29/2021 3:12 PM CDT Pulse 92 04/29/2021 3:12 PM CDT Temperature 36.6 ??C (97.8 ??F) 04/29/2021 3:12 PM CDT Respiratory Rate 20 04/29/2021 3:12 PM CDT Oxygen Saturation 100% 04/29/2021 3:12 PM CDT Inhaled Oxygen Concentration - - Weight - - Height - - Body Mass Index - - documented in this encounter Medications at Time of Discharge Medication Sig Dispensed Refills Start Date End Date diphenhydramine/alum-mag Swish and spit 5 mL 300 mL 0 12/24/2021 antacid/viscous in mouth three times lidocaine (MAGIC a day as needed for MOUTHWASH) oral Pain. contains 1:1:1 suspension ratio of diphenhydramine, lidocaine 2%, alum-mag antacid ketoconazole (NIZORAL) 2 Apply topically two 60 g 1 12/24/2021 % creamIndications: times a day. tinea Indications: tinea documented as of this encounter ED Notes Dalila Thomson MD - 04/29/2021 4:00 PM CDT Two weeks ago was Dx with yeast infection on tongue, was on anitbiotics from dentist. Was given a mouth rinse which made it slightly better but it still has not gone away. Ran out of mouth rinse SUBJECTIVE: Raymundo Viera is a 35 y.o.male Chief Complaint: Chief Complaint Patient presents with ??? PAIN, MOUTH HPI: 35 years old descended male coming today to clinic he complained about yeast infection on his tongue. He was treated by the dentist with antibiotic he was given also nystatin mouth rinsing according patient slightly is get better but not going away. The rinsing of the mouth wash I do not knoweven if is it the statin or not. Patient alert oriented no immunocompromise he denies any his HIV cancers chemotherapy. No weight loss no any other symptom ROS: Complete ROS was negative other than what was cited above. Social History: Social History Tobacco Use ??? Smoking status: Current Every Day Smoker Packs/day: 0.50 Years: 17.00 Pack years: 8.50 Types: Cigarettes ??? Smokeless tobacco: Never Used Vaping Use ??? Vaping Use: Never used Substance Use Topics ??? Alcohol use: Not on file ??? Drug use: Not on file Past Medical History: There is no problem list on file for this patient. Adverse Drug Reactions: Patient has no known allergies. Medications: diphenhydramine/alum-mag antacid/viscous lidocaine and ketoconazole OBJECTIVE: Vital Signs: BP (!) 145/89 (BP Location: Left Arm, BP Cuff Size: Regular - Long) Pulse 92 Temp 36.6 ??C (97.8 ??F) (Oral) Resp 20 SpO2 100% . General: Alert oriented no distress vital signs stable obese male. No history of diabetes HEENT: His both ear clear, his nose midline septum, oral cavity pharynx uvula gum teeth tongue no signs and symptom of any yeast infection at this time. No canker sore no trash, then the patient admitted that his brushing his teeth a lot to keep it clean. He had burn when he does that Lymphatic: No enlarged Chest: Lungs Heart: S1-S2 without murmur Abdomen: Abdomen is soft no organomegaly Musculoskeletal: Joints symmetrical for range of motion active passive normal mucosa of the mouth Skin: No rash Neurological: Negative touch sensation reflexes normal Psychiatric: Denies history anxiety depression Labs: Labs Reviewed - No data to display X-Rays: No results found. ASSESSMENT: Burning sensation of the tongue PLAN: I think that is related to brushing his tongue , discussed with the patient there is no indication of trash, he will now stop brushing his tongue, temporarily I will give him Magic mouthwash for the burning sensation until goes way keep oral mucosa moist rinse the mouth with normal water and brush theteeth normally as before, if worse any additional symptom concern question back to the clinic anytime Medications - No data to display Medications Prescribed this Visit Disp Refills Start End diphenhydramine/alum-mag antacid/viscous lidocaine (MAGIC MOUTHWASH) oral suspension 300 mL 0 04/29/2021 04/29/2022 Swish and spit 5 mL in mouth three times a day as needed for Pain. contains 1:1:1 ratio of diphenhydramine, lidocaine 2%, alum-mag antacid Swish and Spit Discharge instructions are on file. The patient was discharged ambulatory and in stable condition. documented in this encounter Plan of Treatment Not on filedocumented as of this encounter Visit Diagnoses Diagnosis Tongue burning sensation Glossodynia Triage Assessment Note - Lucy Garner RN - 04/29/2021 3:08 PM CDT Two weeks ago was Dx with yeast infection on tongue, was on anitbiotics from dentist. Was given a mouth rinse which made it slightly better but it still has not gone away. Ran out of mouth rinse documented in this encounter Care Teams Dermatologist Relationship Specialty Start Date End Date Needs Pcp, Assignment PCP - General 03/04/15 [facility] [place] [address] documented as of this encounter
== END 2022-07-26 15:53 | disposition home or self-care (01) ==
LOC: ED 14:56
PROVIDERS: Emergency Provider Family Medicine
DX: Z02.79 Encounter for issue of other medical certificate (principal)
CPT/HCPCS: 99281; 99283

== ENCOUNTER 2025-07-28 10:20 | Outpatient (CLI) | payer BC, SELFPAY | END 2025-07-28 10:21 | disposition home or self-care (01) | PROVIDERS: Visit Provider Internal Medicine | DX: R20.2 Paresthesia of skin (principal) | CPT/HCPCS: 80053; 80061; 84443 ==